=== PATIENT | female | born 1980 | race Caucasian/White ===

== ENCOUNTER 2019-07-12 21:52 | Emergency (ER) | payer MEDICAID ==
[~2019-07-12] VITALS: Ht 165.1 cm; Wt 158.3 kg
[~2019-07-12 21:52] MED LIST: CIPR-173; NOR10T
[2019-07-12 22:26] LABS: Basophils # (auto) 0.1 uL; Basophils % (auto) 0.5 % (0.0-2.0); Eosinophils # (auto) 0.1 uL; Eosinophils % (auto) 0.7 % (0.0-7.0); Hematocrit 45.2 % (36.0-46.0); Hemoglobin 15.2 g/dL (12.2-16.2); Lymphocytes % (auto) 23.4 % (10.0-50.0); Mean Corpuscular Hemoglobin 29.1 pg (28.0-32.0); Mean Corpuscular Hgb Conc. 33.7 g/dL (32.0-36.0); Mean Corpuscular Volume 86.4 fL (80.0-100.0); Monocytes # (auto) 1.4 uL; Monocytes % (auto) 10.6 % (0.0-12.0); Neutrophils # (auto) 8.3 uL; Neutrophils % (auto) 64.8 % (37.0-80.0); Platelet Count (auto) 339 10^3/uL (140-450); Red Blood Cells 5.24 10^6/uL (4.0-5.20); Red Cell Distribution Width 14.2 % (11.8-14.3); White Blood Cell 12.8 10^3/uL (4.4-10.8)
[2019-07-12 22:27] LABS: Urine Bacteria MANY /hpf (None Seen); Urine Blood Negative /uL (Negative); Urine Specific Gravity 1.023 (1.001-1.035); Urine WBC 88 /hpf (0 - 5); Urine WBC Clumps PRESENT /hpf (None Seen)
[2019-07-12 22:41] LABS: Alanine Aminotransferase 42 U/L (13-56); Anion Gap 7 (5-15); Aspartate Aminotransferase 27 U/L (15-37); BUN/Creatinine Ratio 9.1; Blood Urea Nitrogen 11 mg/dL (7-18); Calcium 10.9 mg/dL (8.5-10.1); Carbon Dioxide 24 mmol/L (21-32); Chloride 108 mmol/L (98-107); GFR African American 65 mL/min; GFR Non-African American 54 mL/min; Glucose 104 mg/dL (74-106); Potassium 3.8 mmol/L (3.5-5.1); Sodium 139 mmol/L (136-145)
[2019-07-12 22:46] LABS: Alkaline Phosphatase 91 U/L (45-117); Bilirubin, Total 0.6 mg/dL (0.2-1.0); Total Protein 8.4 g/dL (6.4-8.2)
[2019-07-13 03:00] VITALS: BP 120/71
== END 2019-07-13 03:59 | disposition home or self-care (01) ==
LOC: ER 21:54
DX: K52.9 Noninfective gastroenteritis and colitis, unspecified (principal); N39.0 Urinary tract infection, site not specified; H10.9 Unspecified conjunctivitis; I10 Essential (primary) hypertension; J45.909 Unspecified asthma, uncomplicated; Z90.710 Acquired absence of both cervix and uterus
CPT/HCPCS: 36415; 74176; 80053; 81001; 81025; 84484; 85025

== ENCOUNTER 2019-08-10 18:01 | Emergency (ER) | payer MEDICAID ==
[~2019-08-10] VITALS: Ht 165.1 cm; Wt 154.2 kg
[2019-08-10 19:53] LABS: Basophils # (auto) 0.1 uL; Basophils % (auto) 1.1 % (0.0-2.0); Eosinophils # (auto) 0.2 uL; Eosinophils % (auto) 1.4 % (0.0-7.0); Hematocrit 46.8 % (36.0-46.0); Hemoglobin 15.7 g/dL (12.2-16.2); Lymphocytes # (auto) 2.6 uL; Lymphocytes % (auto) 23.1 % (10.0-50.0); Mean Corpuscular Hemoglobin 29.4 pg (28.0-32.0); Mean Corpuscular Hgb Conc. 33.6 g/dL (32.0-36.0); Mean Corpuscular Volume 87.5 fL (80.0-100.0); Monocytes # (auto) 1.1 uL; Monocytes % (auto) 9.7 % (0.0-12.0); Neutrophils # (auto) 7.4 uL; Neutrophils % (auto) 64.7 % (37.0-80.0); Nucleated Red Blood Cells % 0.1 %; Platelet Count (auto) 288 10^3/uL (140-450); Red Blood Cells 5.35 10^6/uL (4.0-5.20); Red Cell Distribution Width 15.1 % (11.8-14.3); White Blood Cell 11.5 10^3/uL (4.4-10.8)
[2019-08-10 20:10] LABS: Albumin 4.3 g/dL (3.4-5.0); Calcium 11.1 mg/dL (8.5-10.1); Potassium 4.9 mmol/L (3.5-5.1)
[2019-08-10 20:13] LABS: BUN/Creatinine Ratio 14.1; Bilirubin, Total 0.3 mg/dL (0.2-1.0); Total Protein 8.4 g/dL (6.4-8.2)
[2019-08-11 09:03] LABS: Urine Amorphous Crystal FEW /hpf (None Seen); Urine Bacteria NONE SEEN /hpf (None Seen); Urine Blood Negative /uL (Negative); Urine Mucus FEW (None Seen); Urine Specific Gravity 1.021 (1.001-1.035); Urine WBC 10 /hpf (0 - 5)
[2019-08-11 10:00] VITALS: BP 115/59
== END 2019-08-11 11:55 | disposition home or self-care (01) ==
LOC: ER 18:08
DX: N39.0 Urinary tract infection, site not specified (principal); K52.9 Noninfective gastroenteritis and colitis, unspecified; E83.52 Hypercalcemia; K76.0 Fatty (change of) liver, not elsewhere classified; E66.01 Morbid (severe) obesity due to excess calories; I12.9 Hypertensive chronic kidney disease with stage 1 through stage 4 chronic kidney disease, or unspecified chronic kidney disease; N18.3 Chronic kidney disease, stage 3 (moderate); J45.909 Unspecified asthma, uncomplicated; Z68.45 Body mass index [BMI] 70 or greater, adult; Z90.710 Acquired absence of both cervix and uterus; Z79.2 Long term (current) use of antibiotics; Z79.899 Other long term (current) drug therapy
CPT/HCPCS: 36415; 74176; 80053; 81001; 81025; 82150; 83690; 85025

== ENCOUNTER 2019-08-18 01:15 | Emergency (ER) | payer MEDICAID ==
[~2019-08-18] VITALS: Ht 165.1 cm; Wt 148.8 kg
[2019-08-18 02:41] LABS: Basophils # (auto) 0.1 uL; Basophils % (auto) 0.7 % (0.0-2.0); Eosinophils # (auto) 0.1 uL; Eosinophils % (auto) 1.4 % (0.0-7.0); Hematocrit 45.1 % (36.0-46.0); Hemoglobin 15.6 g/dL (12.2-16.2); Lymphocytes # (auto) 2.3 uL; Lymphocytes % (auto) 25.5 % (10.0-50.0); Mean Corpuscular Hemoglobin 29.5 pg (28.0-32.0); Mean Corpuscular Hgb Conc. 34.6 g/dL (32.0-36.0); Mean Corpuscular Volume 85.1 fL (80.0-100.0); Monocytes # (auto) 1.1 uL; Monocytes % (auto) 12.1 % (0.0-12.0); Neutrophils # (auto) 5.5 uL; Neutrophils % (auto) 60.3 % (37.0-80.0); Platelet Count (auto) 282 10^3/uL (140-450); Red Blood Cells 5.29 10^6/uL (4.0-5.20); Red Cell Distribution Width 14.6 % (11.8-14.3); White Blood Cell 9.1 10^3/uL (4.4-10.8)
[2019-08-18 03:20] LABS: Albumin 3.9 g/dL (3.4-5.0); Calcium 10.6 mg/dL (8.5-10.1); Potassium 4.4 mmol/L (3.5-5.1)
[2019-08-18 03:21] LABS: BUN/Creatinine Ratio 9.7
[2019-08-18 03:23] LABS: Bilirubin, Total 0.3 mg/dL (0.2-1.0); Total Protein 7.9 g/dL (6.4-8.2)
[2019-08-18 07:42] VITALS: BP 102/54
[2019-08-18] MEDS ORDERED: PANTOPRAZOLE 40 MG TAB PO ONE (07:45)
== END 2019-08-18 07:45 | disposition home or self-care (01) ==
LOC: ER 01:17
DX: K29.70 Gastritis, unspecified, without bleeding (principal); J45.909 Unspecified asthma, uncomplicated; Z90.710 Acquired absence of both cervix and uterus
CPT/HCPCS: 36415; 80053; 85025

== ENCOUNTER 2022-04-06 11:11 | Emergency (ER) | payer MEDICARE, MEDICAID ==
[~2022-04-06] VITALS: Ht 165.1 cm; Wt 115.9 kg
[2022-04-06 11:49] VITALS: BP 142/79
== END 2022-04-06 12:45 | disposition left against medical advice (07) ==
LOC: ER 11:11
DX: Z00.00 Encounter for general adult medical examination without abnormal findings (principal); Z53.21 Procedure and treatment not carried out due to patient leaving prior to being seen by health care provider

== ENCOUNTER 2022-11-02 10:29 | Emergency (ER) | payer MEDICARE, MEDICAID ==
[~2022-11-02] VITALS: Ht 165.1 cm; Wt 137.6 kg
[2022-11-02 11:20] LABS: Basophils # (auto) 0.1 10 ^3/uL (0-0.2); Basophils % (auto) 0.5 % (0.0-2.0); Eosinophils # (auto) 0.1 10 ^3/uL (0-0.8); Eosinophils % (auto) 1.1 % (0.0-7.0); Hematocrit 43.5 % (36.0-46.0); Hemoglobin 14.3 g/dL (12.2-16.2); Lymphocytes # (auto) 1.5 10 ^3/uL (0.4-5.4); Lymphocytes % (auto) 14.9 % (10.0-50.0); Mean Corpuscular Hemoglobin 29.2 pg (28.0-32.0); Mean Corpuscular Hgb Conc. 32.8 g/dL (32.0-36.0); Mean Corpuscular Volume 89.2 fL (80.0-100.0); Monocytes # (auto) 0.8 10 ^3/uL (0-1.3); Monocytes % (auto) 7.9 % (0.0-12.0); Neutrophils # (auto) 7.8 10 ^3/uL (1.6-8.6); Neutrophils % (auto) 75.6 % (37.0-80.0); Red Blood Cells 4.88 10^6/uL (4.0-5.20); Red Cell Distribution Width 14.8 % (11.8-14.3); White Blood Cell 10.3 10^3/uL (4.4-10.8)
[2022-11-02 11:58] LABS: Urine Bacteria FEW /hpf (None Seen); Urine Blood TRACE /uL (Negative); Urine Specific Gravity 1.017 (1.001-1.035); Urine WBC 4 /hpf (0 - 5)
[2022-11-02 12:25] LABS: Albumin 3.6 g/dL (3.4-5.0); Bilirubin, Total 0.3 mg/dL (0.2-1.0); Calcium 10.6 mg/dL (8.5-10.1); Total Protein 7.4 g/dL (6.4-8.2)
[2022-11-02] MEDS ORDERED: NITR-87 PO (13:12)
[2022-11-02 13:55] VITALS: BP 124/89
== END 2022-11-02 14:58 | disposition home or self-care (01) ==
LOC: ER 10:29
DX: N39.0 Urinary tract infection, site not specified (principal); I10 Essential (primary) hypertension; J45.909 Unspecified asthma, uncomplicated; Z90.710 Acquired absence of both cervix and uterus; Z79.899 Other long term (current) drug therapy
CPT/HCPCS: 36415; 80053; 81001; 84484; 85025

== ENCOUNTER → 2023-04-05 | Day surgery (SDC) | payer MEDICARE, MEDICAID ==
[~2023-04-05] VITALS: Ht 165.1 cm; Wt 143.8 kg
[~2023-04-05] MED LIST changes: -CIPR-173; +CIPROFLOXACIN 400MG/200ML 200 ML IV ONE; +HYDROmorphone HCL 2 MG/ML VL/or syr IV PRN; +LIDOCAINE 2% (LOCAL ANESTH.) PF 5ml SDV ONE; +MIDAZOLAM HCL 2MG/2ML 2ml VIAL (1mg/ml) ONE; -NOR10T; +ONDANSETRON HCL 4 MG/2 ML VIAL IV PRN; +ONDANSETRON HCL 4 MG/2 ML VIAL ONE; +PROPOFOL 10 MG/ML 20 ML IV ONE; +SUCCINYLCHOLINE CHLORIDE 20 MG/ML 10ML VIAL IV ONE; +fentaNYL CITRATE 100 MCG/2 ML VL ONE
[2023-04-05 08:46] VITALS: TEMP 98.7
[2023-04-05 09:30] VITALS: BP 111/52; PULSE 56; RESP 24; O2SAT 98
== END | disposition home or self-care (01) ==
LOC: SUR 06:06
PROVIDERS: ATTEND Urology
DX: N20.0 Calculus of kidney (principal); E66.9 Obesity, unspecified; Z68.43 Body mass index [BMI] 50.0-59.9, adult; Z90.710 Acquired absence of both cervix and uterus; Z98.890 Other specified postprocedural states
CPT/HCPCS: 50590; J0330; J0744; J2001; J2250; J2405; J2704; J3010

== ENCOUNTER 2024-04-12 08:47 | Day surgery (SDC) | payer MEDICARE, MEDICAID ==
[2024-04-05 10:44] LABS: Basophils # (auto) 0.1 10 ^3/uL (0-0.2); Basophils % (auto) 0.7 % (0.0-2.0); Eosinophils # (auto) 0.1 10 ^3/uL (0-0.8); Eosinophils % (auto) 1.4 % (0.0-7.0); Hematocrit 41.3 % (36.0-46.0); Hemoglobin 13.9 g/dL (12.2-16.2); Lymphocytes # (auto) 1.8 10 ^3/uL (0.4-5.4); Lymphocytes % (auto) 18.3 % (10.0-50.0); Mean Corpuscular Hemoglobin 30.4 pg (28.0-32.0); Mean Corpuscular Hgb Conc. 33.6 g/dL (32.0-36.0); Mean Corpuscular Volume 90.4 fL (80.0-100.0); Monocytes % (auto) 9.6 % (0.0-12.0); Red Blood Cells 4.57 10^6/uL (4.0-5.20); Red Cell Distribution Width 14.8 % (11.8-14.3)
[2024-04-05 10:47] LABS: Urine Bacteria FEW /hpf (None Seen); Urine Blood Negative /uL (Negative); Urine Clarity Clear (Clear); Urine Color Light-Yellow (Yellow); Urine Mucus FEW (None Seen); Urine Protein, UAD Negative (Negative); Urine Specific Gravity 1.015 (1.001-1.035); Urine Urobilinogen Normal (Negative); Urine WBC 8 /hpf (0 - 5); Urine pH 5.5 (5.0-9.0)
[2024-04-05 11:04] LABS: INR 1.02 (0.9-1.15); Partial Thromboplastin Time 26.7 SEC (24.5-34.5); Prothrombin Time 10.8 sec (9.3-11.8)
[2024-04-05 11:15] LABS: Alanine Aminotransferase 26 U/L (7-40); Albumin 4.6 g/dL (3.2-4.8); Alkaline Phosphatase 90 U/L (46-116); Anion Gap 5 (5-15); Aspartate Aminotransferase 13 U/L (13-40); BUN/Creatinine Ratio 7.4 (10.0-20.0); Bilirubin, Total 0.3 mg/dL (0.2-1.0); Blood Urea Nitrogen 13 mg/dL (9-23); Calcium 12.1 mg/dL (8.7-10.4); Carbon Dioxide 28 mmol/L (20-30); Chloride 107 mmol/L (98-107); Glucose 85 mg/dL (74-106); Potassium 4.6 mmol/L (3.5-5.1); Sodium 140 mmol/L (136-145); Total Protein 7.4 g/dL (5.7-8.2)
[~2024-04-12] VITALS: Ht 165.1 cm; Wt 149.7 kg
[~2024-04-12 08:47] MED LIST changes: +ACET-1882 PO; +ALBUAER3 IN; +ARIP2TAB PO; +BUPR150T18 PO; +BUSP5TAB51 PO; +CETI-195 PO; -CIPROFLOXACIN 400MG/200ML 200 ML IV ONE; +DOCU-94 PO; +FAMO20TA10 PO; +FENO54TA4 PO; +FURO20TA3 PO; -HYDROmorphone HCL 2 MG/ML VL/or syr IV PRN; -LIDOCAINE 2% (LOCAL ANESTH.) PF 5ml SDV ONE; +LISI2.5T47 PO; +LOVA20TA4 PO; -MIDAZOLAM HCL 2MG/2ML 2ml VIAL (1mg/ml) ONE; -ONDANSETRON HCL 4 MG/2 ML VIAL IV PRN; -ONDANSETRON HCL 4 MG/2 ML VIAL ONE; -PROPOFOL 10 MG/ML 20 ML IV ONE; -SUCCINYLCHOLINE CHLORIDE 20 MG/ML 10ML VIAL IV ONE; +TRAZ-228 PO; -fentaNYL CITRATE 100 MCG/2 ML VL ONE
[2024-04-12] MEDS ORDERED: PROPOFOL 10 MG/ML 20 ML IV ONE ×2 (09:48→10:07)
[2024-04-12 10:12] VITALS: PULSE 77; RESP 10; TEMP 97.8; O2SAT 97
[2024-04-12 10:45] VITALS: BP 118/68; PULSE 77; RESP 16; O2SAT 96
== END 2024-04-12 11:05 | disposition home or self-care (01) ==
LOC: GI 08:47
PROVIDERS: ATTEND Internal Medicine Gastroenterology
DX: R19.7 Diarrhea, unspecified (principal); R19.5 Other fecal abnormalities; R10.11 Right upper quadrant pain; K29.50 Unspecified chronic gastritis without bleeding; B96.81 Helicobacter pylori [H. pylori] as the cause of diseases classified elsewhere; K21.9 Gastro-esophageal reflux disease without esophagitis; I12.9 Hypertensive chronic kidney disease with stage 1 through stage 4 chronic kidney disease, or unspecified chronic kidney disease; N18.9 Chronic kidney disease, unspecified; J45.909 Unspecified asthma, uncomplicated; E78.5 Hyperlipidemia, unspecified; F32.A Depression, unspecified; E66.01 Morbid (severe) obesity due to excess calories; Z68.43 Body mass index [BMI] 50.0-59.9, adult; Z90.710 Acquired absence of both cervix and uterus; Z88.8 Allergy status to other drugs, medicaments and biological substances; Z80.0 Family history of malignant neoplasm of digestive organs
CPT/HCPCS: 36415; 43239; 45380; 80053; 81001; 85025; 85610; 85730; 88305; 88312; 88342; J2704; J7030

== ENCOUNTER 2024-06-24 18:22 | Emergency (ER) | payer MEDICARE, MEDICAID ==
[~2024-06-24] VITALS: Ht 165.1 cm; Wt 152.0 kg
[~2024-06-24 18:22] MED LIST changes: +PANT40TA2 PO; +ZOFR4T PO
[2024-06-24 20:16] VITALS: BP 110/64; PULSE 75; RESP 17; TEMP 97.7; O2SAT 96
== END 2024-06-24 21:20 | disposition home or self-care (01) ==
LOC: ER 18:22
DX: S93.401A Sprain of unspecified ligament of right ankle, initial encounter (principal); J45.909 Unspecified asthma, uncomplicated; I10 Essential (primary) hypertension; G89.29 Other chronic pain; Z79.899 Other long term (current) drug therapy; Z87.11 Personal history of peptic ulcer disease; Z87.440 Personal history of urinary (tract) infections; Z88.1 Allergy status to other antibiotic agents; Z88.6 Allergy status to analgesic agent; Z90.710 Acquired absence of both cervix and uterus; X50.1XXA Overexertion from prolonged static or awkward postures, initial encounter; Y93.01 Activity, walking, marching and hiking; Y92.89 Other specified places as the place of occurrence of the external cause; Y99.8 Other external cause status
CPT/HCPCS: 29515; 73610

== ENCOUNTER 2024-12-02 20:20 | Inpatient (IN) | payer MEDICARE, MEDICAID ==
[~2024-12-02] VITALS: Ht 165.1 cm; Wt 148.7 kg
--- NOTE | 2024-12-02 20:39 | ED.PDOC ---
HPI Comments 44 year old female brought in by EMS presents to the ED with a chief complaint of chest pain onset today (12/02/24). Patient woke up today experiencing substernal chest pain, radiating to LT arm, rates pain 7/10 as well as sore throat. She noticed pain increases when taking a deep breath. Patient has been taking Lasix for the past month, since then noticed bilateral leg swelling, decrease urine output. Upon EMS arrival, all VSS. PMHx HTN, depression, Gerd. Denies nausea, vomiting, diarrhea, fever, chills, headache, dizziness. No other symptoms or modifying factors present at this time. Time Seen by MD: 20:27 Primary Care Provider: RAI Reviewed Notes: Nurses Notes, Medications, Allergies Allergies: Coded Allergies: Vancomycin (Unverified Allergy, Intermediate, Rash, pruritus, 04/06/24) Aspirin (Verified Allergy, Unknown, 06/11/24) Ibuprofen (Verified Allergy, Unknown, 06/11/24) Home Meds Active Scripts Ondansetron Odt 4MG Tab (ZOFRAN PO) 4 Mg Tb, 4 MG PO Q8HP PRN for 5 Days, #15 TAB ODT TAB-DISSOLVE IN MOUTH, THEN SWALLOW Prov:EDUAR ORELLANA MD 11/25/23 Pantoprazole Sodium Sesquihydr (Protonix) 40 Mg Tab, 40 MG PO DAILY, #30 TAB Prov:EDUAR ORELLANA MD 11/25/23 Reported Medications Albuterol Sulfate (VENTOLIN MDI) 90 Mcg Ih, 2 PUFF IN Q4HPRN, INH 04/06/24 Trazodone Hcl (Trazodone Hcl) 100 Mg Tab, 100 MG PO HS, TAB 04/06/24 Lovastatin (Lovastatin) 20 Mg Tab, 20 MG PO HS, TAB 04/06/24 Lisinopril (Lisinopril) 2.5 Mg Tab, 5 MG PO DAILY, TAB 04/06/24 Furosemide (Furosemide) 20 Mg Tab, 20 MG PO DAILY, TAB 04/06/24 Fenofibrate (Fenofibrate) 54 Mg Tab, 54 MG PO DAILY, TAB 04/06/24 Famotidine (PEPCID TABLET) 20 Mg Tb, 20 MG PO DAILY, TAB 04/06/24 Docusate Sodium (Colace) 100 Mg Cap, 100 MG PO DAILY, CAP 04/06/24 Cetirizine HCl (Allergy) 10 Mg Tab, 10 MG PO DAILY, TAB 04/06/24 Buspirone Hcl (Buspirone Hcl) 5 Mg Tab, 10 MG PO BID, TAB 04/06/24 Bupropion Hcl (Bupropion Hcl Xl) 150 Mg Tab, 300 MG PO DAILY, TAB 04/06/24 Aripiprazole (Abilify) 2 Mg Tab, 5 MG PO DAILY, TAB 04/06/24 Acetaminophen (Acetaminophen) 325 Mg Tab, 2 TAB PO Q6HP, TAB 04/06/24 Information Source: Patient, Emergency Med Personnel Mode of Arrival: EMS Severity: Moderate Timing: Hours Duration: Since onset Prehospital treatment: None Location: Substernal Radiation: Arm (L) Quality: Sharp Onset: At Rest Cardiac Risk Factors: Family History, HTN PE Risk Factors: None History of: None Modifying Factors: Nothing Associated Signs and Symptoms: Other (LT arm pain) Past Medical History PAST MEDICAL HISTORY: Asthma, HTN, PUD, UTI'S Surgical History: Hysterectomy Surgical History (Other): back surgery SYSTEM ADMINISTRATOR History: No Pertinent SYSTEM ADMINISTRATOR History Family History Family History: Family hx of heart chava Social History Smoker: Non-Smoker Alcohol: Denies ETOH Use Drugs: Denies Drug Use Lives In: Other Constitutional: denies: chills, diaphoresis, fatigue, fever, malaise, sweats, weakness, others EENTM: denies: blurred vision, double vision, ear bleeding, ear discharge, ear drainage, ear pain, ear ringing, eye pain, eye redness, hearing loss, mouth pain, mouth swelling, nasal discharge, nose bleeding, nose congestion, nose pain, photophobia, tearing, throat pain, throat swelling, voice changes, others Respiratory: denies: cough, hemoptysis, orthopnea, SOB at rest, shortness of breath, SOB with excertion, stridor, wheezing, others Cardiovascular: reports: chest pain; denies: dizzy spells, diaphoresis, Dyspnea on exertion, edema, irregular heart beat, left arm pain, lightheadedness, palpitations, PND, syncope, others Gastrointestinal: denies: abdomen distended, abdominal pain, blood streaked bowels, constipated, diarrhea, dysphagia, difficulty swallowing, hematemesis, melena, nausea, poor appetite, poor fluid intake, rectal bleeding, rectal pain, vomiting, others Genitourinary: denies: abnormal vagina bleeding, burning, dyspareunia, dysuria, flank pain, frequency, hematuria, incontinence, pain, , vagina discharge, urgency, others Neurological: denies: dizziness, fainting, headache, left sided numbness, left sided weakness, numbness, paresthesia, pre-existing deficit, right sided numbness, right sided weakness, seizure, speech problems, tingling, tremors, weakness, others Musculoskeletal: reports: others (LT arm pain); denies: back pain, gout, joint pain, joint swelling, muscle pain, muscle stiffness, neck pain Integumetry: denies: bruises, change in color, change in hair/nails, dryness, laceration, lesions, lumps, rash, wounds, others Allergic/Immunocompromised: denies: Difficulty Healing, Frequent Infections, Hives, Itching, others Hematologic/Lymphatic: denies: anemia, blood clots, easy bleeding, easy bruising, swollen glands, others Endocrine: denies: excessive hunger, excessive sweating, excessive thirst, excessive urination, flushing, intolerance to cold, intolerance to heat, unexplained weight gain, unexplained weight loss, others Psychiatric: denies: anxiety, bipolar disorder, depression, hopeless, panic disorder, schizophrenia, sleepless, suicidal, others All Other Systems: Reviewed and Negative Physical Exam General Appearance: Moderate Distress HEENT: Normal ENT Inspection, Pharynx Normal, TMs Normal Neck: Full Range of Motion, Non-Tender, Normal, Normal Inspection Respiratory: Chest Non-Tender, Lungs Clear, No Accessory Muscle Use, No Respiratory Distress, Normal Breath Sounds Cardiovascular: No Edema, No JVD, No Murmur, No Gallop, Normal Peripheral Pulses, Regular Rate/Rhythm Breast Exam: Deferred Gastrointestinal: No Organomegaly, Non Tender, No Pulsatile Mass, Normal Bowel Sounds, Soft Genitalia: Deferred Pelvic: Deferred Rectal: Deferred Extremities: No calf tenderness, Normal capillary refill, Normal inspection, Normal range of motion, Non-tender, No pedal edema Musculoskeletal : Apperance: Normal Neurologic: Alert, coding auditor II-XII nml as Tested, No Motor Deficits, Normal Affect, Normal Mood, No Sensory Deficits Cerebellar Function: Normal Reflexes: Normal Skin: Dry, Normal Color, Warm Lymphatic: No Adenopathy EKG EKG : Cardiac Rhythm: NSR (77 bpm) Comments 77 bpm Was a procedure done? Was a procedure done?: No CP Differential Dx Differential Diagnosis: Angina, MA Differential Diagnosis: CHF, HTN Essential, HTN Accelerated X-Ray, Labs, Meds, VS Vital Signs Date Time Temp Pulse Resp B/P (MAP) Pulse Ox O2 Delivery O2 Flow Rate FiO2 12/02/24 21:26 68 19 97 Room Air* 0 21 12/02/24 21:18 98.7 75 17 117/74 (88) 94 98.7 12/02/24 20:25 98.2 74 16 118/70 (86) 95 98.2 12/02/24 20:22 77 Lab Test 12/02/24 20:40 Range/Units White Blood Count 12.7 H 4.4-10.8 10^3/uL Red Blood Count 5.18 4.0-5.20 10^6/uL Hemoglobin 14.5 12.2-16.2 g/dL Hematocrit 44.4 36.0-46.0 % Mean Corpuscular Volume 85.7 80.0-100.0 fL Mean Corpuscular Hemoglobin 28.1 28.0-32.0 pg Mean Corpuscular Hemoglobin Concent 32.8 32.0-36.0 g/dL Red Cell Distribution Width 14.8 H 11.8-14.3 % Platelet Count 291 140-450 10^3/uL Mean Platelet Volume 7.0 6.9-10.8 fL Neutrophils (%) (Auto) 72.9 37.0-80.0 % Lymphocytes (%) (Auto) 17.1 10.0-50.0 % Monocytes (%) (Auto) 8.0 0.0-12.0 % Eosinophils (%) (Auto) 1.3 0.0-7.0 % Basophils (%) (Auto) 0.7 0.0-2.0 % Neutrophils # (Auto) 9.2 H 1.6-8.6 10 ^3/uL Lymphocytes # (Auto) 2.2 0.4-5.4 10 ^3/uL Monocytes # (Auto) 1.0 0-1.3 10 ^3/uL Eosinophils # (Auto) 0.2 0-0.8 10 ^3/uL Basophils # (Auto) 0.1 0-0.2 10 ^3/uL Nucleated Red Blood Cells 0.1 % D-Dimer, Quantitative 0.49 0.0-0.49 mg/L FEU Sodium Level 139 136-145 mmol/L Potassium Level 3.9 3.5-5.1 mmol/L Chloride Level 107 98-107 mmol/L Carbon Dioxide Level 28 20-31 mmol/L Anion Gap 4 L 5-15 Blood Urea Nitrogen 11 9-23 mg/dL Creatinine 1.47 H 0.550-1.02 mg/dL Glomerular Filtration Rate Calc 45 >90 mL/min BUN/Creatinine Ratio 7.5 L 10.0-20.0 Serum Glucose 92 74-106 mg/dL Calcium Level 12.0 H 8.7-10.4 mg/dL Troponin I High Sensitivity < 3 L </=34 ng/L Current Medications Medications (Trade) Dose Ordered Sig/Vargas Route Start Time Stop Time Status Last Admin Aspirin 162 mg ONCE ONCE PO 12/02/24 20:45 12/02/24 20:46 DC 12/02/24 21:28 IV Hep-Lock was established The patient was given aspirin 162 mg by mouth The CBC shows an elevated white blood cell count of 12.7 The rest of the CBC is within normal limits The D-dimer is within limits At this time, the patient has a creatinine of 1.47 The patient was being admitted to the hospitalist at this time Images Reviewed?: Images reviewed and evaluated by me Time of 1ST Reevaluation: 20:57 Reevaluation 1ST: Unchanged Patient Education/Counseling: Diagnosis, Treatment, Prognosis Family Education/Counseling: No Family Present Departure 1 Departure Time of Disposition: 21:47 Impression: Primary Impression: Acute myocardial ischemia Disposition: 09 ADMITTED INPATIENT Admit to: [facility] Condition: Fair Critical Care Note Critical Care Time?: No Stability Stability form required: Yes Unstable for transfer: Telemetry monitoring (Telemetry monitoring required), ED Physician Assesment (Clinical assesment) Heart Score Heart Score: Heart Score Response (Comments) Value History Moderate Suspicious 1 EKG Repolarization Disturb 1 Age <45 0 Risk Factors 1 or 2 risk factors 1 Troponin Normal limit 0 Total 3 I personally scribed for EDUAR ORELLANA MD ([email or web address]) on 12/02/24 at 20:39. Electronically submitted by Carole Reyes ([email or web address]). EDUAR ORELLANA MD Dec 02, 2024 20:39
[2024-12-02 20:49] LABS: Basophils # (auto) 0.1 10 ^3/uL (0-0.2); Basophils % (auto) 0.7 % (0.0-2.0); Eosinophils # (auto) 0.2 10 ^3/uL (0-0.8); Eosinophils % (auto) 1.3 % (0.0-7.0); Hematocrit 44.4 % (36.0-46.0); Hemoglobin 14.5 g/dL (12.2-16.2); Lymphocytes # (auto) 2.2 10 ^3/uL (0.4-5.4); Lymphocytes % (auto) 17.1 % (10.0-50.0); Mean Corpuscular Hemoglobin 28.1 pg (28.0-32.0); Mean Corpuscular Hgb Conc. 32.8 g/dL (32.0-36.0); Mean Corpuscular Volume 85.7 fL (80.0-100.0); Neutrophils # (auto) 9.2 10 ^3/uL (1.6-8.6); Neutrophils % (auto) 72.9 % (37.0-80.0); Nucleated Red Blood Cells % 0.1 %; Platelet Count (auto) 291 10^3/uL (140-450); Red Blood Cells 5.18 10^6/uL (4.0-5.20); Red Cell Distribution Width 14.8 % (11.8-14.3); White Blood Cell 12.7 10^3/uL (4.4-10.8)
[2024-12-02 21:12] LABS: Anion Gap 4 (5-15); BUN/Creatinine Ratio 7.5 (10.0-20.0); Blood Urea Nitrogen 11 mg/dL (9-23); Carbon Dioxide 28 mmol/L (20-31); Chloride 107 mmol/L (98-107); Glucose 92 mg/dL (74-106); Potassium 3.9 mmol/L (3.5-5.1); Sodium 139 mmol/L (136-145)
[2024-12-02 21:26] VITALS: PULSE 68; RESP 19; O2SAT 97
[2024-12-02] MEDS: ASPirin 81 mg TAB PO ONE (21:28)
--- NOTE | 2024-12-02 22:43 | DVH ---
CHEST RADIOGRAPH Indication: cp Technique: Frontal and lateral view of the chest was obtained Comparison: None FINDINGS: Lines and Tubes: None Lungs: Clear Pleura: No effusion. No pneumothorax. Cardiomediastinal contours: Unremarkable Bones: Unremarkable IMPRESSION: 1. No evidence of acute disease.
[2024-12-02] MEDS ORDERED: MORPHINE SULFATE INJ 2 MG/ml SYRG IV PRN (22:45)
--- NOTE | 2024-12-02 23:16 | DVHHPRES ---
History of Present Illness Resident Creating Document: KAYY MCARTHUR RESDIENT History of Present Illness This is a 44 year old female with past medical history of hypertension, depression, GERD, CKD, and asthma came to the hospital due to chest pain for 1 day. She has localized substernal chest pain, burning in nature, 03/28, increased with taking deep breaths. The pain did not resolve by taking aspirin. Also reports shortness of breath. He denies fever, nausea, vomiting, or any recent bowel and bladder habit changes. PMHx: hypertension, depression, GERD, CKD, and asthma and history skin cancer (patient does not remind clearly, possibly melanoma, in remission) PSHx: Back surgery due to fused disc Family history: Noncontributing Social history: Denies smoking or any other drug use, lives with a boyfriend at home. Secondhand smoker Home medication: Albuterol, lovastatin, lisinopril, furosemide, fenofibrate, famotidine, bupropion, aripiprazole Allergic history: Aspirin, ibuprofen and vancomycin Review of Systems Review of Systems General: patient denies fever, fatigue, weaknes, sweating, any recent changes in appetite and weight HEENT: No headaches, visiual changes, hearing loss, tinnitus, nasal congestion and discharge, and sore throat. Cardiovascular: Reports chest pain Respiratory: No cough, and wheezing. Gastrointestinal: Denies nausea, vomiting, dysphagia, odynophagia, heartburn, abdominal pain, flatulence, bloating, diarrhea, constipation, change in stool, or blood in stool. Genitourinary: No dysuria, hematuria, discharge, frequency, urgency, nocturia, incontinence, and urinary retention. Endocrine: No heat or cold intolerance, polydipsia, polyuria, and polyphagia. Neurological: No dizziness, extremity weakness and numbness, tremors, gait disturbance, seizures, and memory impairment. Psychiatric: Denies depression, anxiety,or insomnia. Musculoskeletal: Denies neck pain, stiffness and swelling, back pain, muscle weakness, joint pain, stiffness, swelling, or limited range of motion. Skin: No rashes, itching, skin lesion, changes in hair, nail, skin texture and breast. Hematologic/Lymphatic: Denies easy bruising, bleeding tendencies, or lymph node enlargement. Allergies: Coded Allergies: Vancomycin (Unverified Allergy, Intermediate, Rash, pruritus, 04/06/24) Aspirin (Verified Allergy, Unknown, 06/11/24) Ibuprofen (Verified Allergy, Unknown, 06/11/24) Medications Current Medications Medications Dose Ordered Sig/Vargas Route Start Time Stop Time Status Last Admin Dose Admin Acetaminophen 650 mg Q6HP PRN PO 12/02/24 22:45 UNV Enoxaparin Sodium 40 mg DAILY SC 12/03/24 10:00 UNV Nitroglycerin 0.4 mg Q5MINP PRN SL 12/02/24 22:45 UNV Morphine Sulfate 2 mg Q30M PRN IV 12/02/24 22:45 UNV Pantoprazole Sodium 40 mg DAILY IV 12/03/24 10:00 UNV Albuterol 1 mcg Q4HPRN IN 12/03/24 02:00 UNV Furosemide 20 mg DAILY PO 12/03/24 10:00 UNV Bupropion HCl 150 mg BID@07,19 PO 12/03/24 07:00 UNV Lisinopril 2.5 mg DAILY PO 12/03/24 10:00 UNV Exam Vital Signs Vital Signs Date Time Temp Pulse Resp B/P (MAP) Pulse Ox O2 Delivery O2 Flow Rate FiO2 12/02/24 21:26 68 19 97 Room Air* 0 21 12/02/24 21:18 98.7 117/74 (88) 98.7 Exam General Appearance: Alert, Oriented X3, Cooperative, No acute distress HEENT: Atraumatic, PERRLA, EOMI, Mucous membrane moist/pink Respiratory: Clear to auscultation, Normal air movement Cardiovascular: Regular rate, Normal S1, Normal S2, No murmurs, no chest wall tenderness Abdominal: Normal bowel sounds, Soft, No tenderness, No hepatospenomegaly, No masses Extremities: Grade 2 pedal edema Skin: No rashes, No breakdown, No significant lesion Neuro: Normal gait, Normal speech, Strength at 5/5 X4 ext, Normal tone, Sensation intact, Cranial nerves 3-12 NL, Reflexes 2+ Psych/Mental Status: Mental status NL, Mood NL Labs/Xrays Labs Test 12/02/24 20:40 Range/Units White Blood Count 12.7 H 4.4-10.8 10^3/uL Red Blood Count 5.18 4.0-5.20 10^6/uL Hemoglobin 14.5 12.2-16.2 g/dL Hematocrit 44.4 36.0-46.0 % Mean Corpuscular Volume 85.7 80.0-100.0 fL Mean Corpuscular Hemoglobin 28.1 28.0-32.0 pg Mean Corpuscular Hemoglobin Concent 32.8 32.0-36.0 g/dL Red Cell Distribution Width 14.8 H 11.8-14.3 % Platelet Count 291 140-450 10^3/uL Mean Platelet Volume 7.0 6.9-10.8 fL Neutrophils (%) (Auto) 72.9 37.0-80.0 % Lymphocytes (%) (Auto) 17.1 10.0-50.0 % Monocytes (%) (Auto) 8.0 0.0-12.0 % Eosinophils (%) (Auto) 1.3 0.0-7.0 % Basophils (%) (Auto) 0.7 0.0-2.0 % Neutrophils # (Auto) 9.2 H 1.6-8.6 10 ^3/uL Lymphocytes # (Auto) 2.2 0.4-5.4 10 ^3/uL Monocytes # (Auto) 1.0 0-1.3 10 ^3/uL Eosinophils # (Auto) 0.2 0-0.8 10 ^3/uL Basophils # (Auto) 0.1 0-0.2 10 ^3/uL Nucleated Red Blood Cells 0.1 % D-Dimer, Quantitative 0.49 0.0-0.49 mg/L FEU Sodium Level 139 136-145 mmol/L Potassium Level 3.9 3.5-5.1 mmol/L Chloride Level 107 98-107 mmol/L Carbon Dioxide Level 28 20-31 mmol/L Anion Gap 4 L 5-15 Blood Urea Nitrogen 11 9-23 mg/dL Creatinine 1.47 H 0.550-1.02 mg/dL Glomerular Filtration Rate Calc 45 >90 mL/min BUN/Creatinine Ratio 7.5 L 10.0-20.0 Serum Glucose 92 74-106 mg/dL Calcium Level 12.0 H 8.7-10.4 mg/dL Troponin I High Sensitivity < 3 L </=34 ng/L Assessment/Plan Assessment/Plan Chest pain, noncardiac ? ACS EKG shows normal sinus rhythm with no significant ST or T-wave changes Echocardiogram Clopidogrel Morphine p.r.n. Next history of asthma Hypertension Depression GERD CKD Continue home meds DIET: Cardiac diet DVT PROPHYLAXIS: Lovenox GI PROPHYLAXIS:: Protonix CODE STATUS: Goal of care discussed more than 21 minutes, full code DISPOSITION: Telemetry Patient's status and paln discussed with the patient. Case discussed with Dr. Aly. Plan discussed with: Patient, Other (RN) My Orders Orders - KAYY MCARTHUR RESDIDEMOND Procedure Category Date Status Time Admit ADMIT 12/02/24 Transmitted 22:44 Code Status CODE 12/02/24 Transmitted 22:44 Vital Signs JOCELYNE 12/02/24 In Process 22:44 Review Orders With JOCELYNE 12/02/24 In Process Adm.Md 22:44 Consistent DIET 12/03/24 Transmitted Carb(Ccho)Diabetes Breakfast Acetaminophen Tablet PHA 12/02/24 Logged (Tylenol Tablet) 22:45 Notify Of Changes [facility] 12/02/24 In Process From Base 22:44 Advance Directive JOCELYNE 12/02/24 In Process 22:44 Echo 2d Mode Cardiac US 12/02/24 Logged DOP 22:44 Urinalysis LAB 12/02/24 Logged 22:44 Lipid Panel LAB 12/02/24 Logged 22:44 Patient Condition ORDERS 12/02/24 Transmitted 22:44 Allergies JOCELYNE 12/02/24 In Process 22:44 Hemoglobin A1c LAB 12/02/24 Logged 22:44 Enoxaparin Sodium PHA 12/03/24 Logged (Lovenox) 10:00 Nitroglycerin PHA 12/02/24 Logged Sublingual (Ntrostat 22:45 Morphine Sulfate PHA 12/02/24 Logged Injection 22:45 Oxygen By Nasal RT 12/02/24 Transmitted Cannula 22:44 Stat Ekg For Chest JOCELYNE 12/02/24 In Process Pain 22:44 Notify Of Changes [facility] 12/02/24 In Process From Base 22:44 Aircraft Maintenance Supervisor For JOCELYNE 12/02/24 In Process 24 Hours 22:44 Emergency Dysrhythmia JOCELYNE 12/02/24 In Process Protocol 22:44 Rhythm Strips Once JOCELYNE 12/02/24 In Process Every Shift 22:44 Comprehensive LAB 12/03/24 Verified Metabolic Panel 04:00 Complete Blood Count LAB 12/03/24 Verified 04:00 Thyroid Stimulating LAB 12/02/24 Logged Hormone 22:44 Drug Screen LAB 12/02/24 Logged 22:44 Parathyroid Hormone LAB 12/02/24 Logged Intact 22:44 Hepatic Panel LAB 12/02/24 Logged 22:44 Vitamin D, 25-Hydroxy LAB 12/02/24 Logged 22:44 Vitamin B12 LAB 12/02/24 Logged 22:44 Magnesium LAB 12/02/24 Logged 22:44 Phosphorus LAB 12/02/24 Logged 22:44 Pantoprazole PHA 12/03/24 Logged (Protonix) 10:00 Pantoprazole PHA 12/02/24 Logged (Protonix) 22:45 Albuterol Inhaler PHA 12/03/24 Logged (Ventolin Hfa) 02:00 Furosemide Tablet PHA 12/03/24 Logged (Lasix Tablet) 10:00 Bupropion Tablet PHA 12/03/24 Logged (Wellbutrin Tablet) 07:00 Lisinopril Tablet PHA 12/03/24 Logged (Zestril Tablet) 10:00 Lisinopril Tablet PHA 12/02/24 Logged (Zestril Tablet) 23:15 Date of Service: Dec 02, 2024 Billing Provider: JAZZ ALY MD Common Visit Codes: [id number] INP/OBS CARE (HIGH) KAYY MCARTHUR RESCLAUDIA Dec 02, 2024 23:16 JAZZ ALY MD Dec 03, 2024 18:03
[2024-12-02] MEDS: PANTOPRAZOLE 40 MG/10 ML VIAL INJ IV ONE (23:40)
[2024-12-02] MEDS: LISINOPRIL 5 MG TAB PO ONE (23:42)
[2024-12-03] VITALS (9 sets, daily range): BP systolic 114–130; BP diastolic 72–82; PULSE 55–83; RESP 17–18; TEMP 97.3–97.9; O2SAT 92–96
[2024-12-03] MEDS ORDERED: FURO20TA4 PO (00:29)
[2024-12-03] MEDS ORDERED: TERB250T92 PO (00:29)
[2024-12-03] MEDS ORDERED: ARIP5TAB22 PO (00:30)
[2024-12-03] MEDS ORDERED: TRAZ1TAB12 PO (00:30)
[2024-12-03] MEDS ORDERED: FAMO40TA7 PO (00:30)
[2024-12-03] MEDS ORDERED: MUPI2OIN2 TOP (00:30)
[2024-12-03] MEDS ORDERED: BUPR-581 PO (00:30)
[2024-12-03] MEDS ORDERED: PANT40T PO (00:30)
[2024-12-03] MEDS ORDERED: CETI-120 PO (00:30)
[2024-12-03] MEDS ORDERED: ALBU108A5 INH (00:30)
[2024-12-03] MEDS ORDERED: NIFE1TAB30 PO (00:30)
[2024-12-03] MEDS ORDERED: BUSP10TA31 PO (00:30)
[2024-12-03] MEDS ORDERED: LISI-275 PO (00:30)
[2024-12-03 00:37] LABS: Alanine Aminotransferase 13 U/L (7-40); Albumin 4.2 g/dL (3.2-4.8); Alkaline Phosphatase 104 U/L (46-116); Magnesium 2.1 mg/dL (1.6-2.6); Total Protein 6.8 g/dL (5.7-8.2)
[2024-12-03 00:40] LABS: Aspartate Aminotransferase < 8 U/L (13-40); Bilirubin, Total 0.2 mg/dL (0.2-1.0); Phosphorus 2.1 mg/dL (2.4-5.1)
[2024-12-03] MEDS: ACETAMINOPHEN 325 MG TAB PO PRN (01:06)
[2024-12-03 01:40] LABS: LDL Cholesterol 64 mg/dL (< 100)
[2024-12-03 01:41] LABS: Cholesterol 121 mg/dL (< 200)
[2024-12-03] MEDS ORDERED: ALBUTEROL SULF HFA 90MCG INH 200DOSE IN SCH (02:00)
[2024-12-03 02:03] LABS: HDL Cholesterol 34 mg/dL (40-59); Triglycerides 229 mg/dL (< 150)
[2024-12-03 02:04] LABS: Bilirubin, Direct < 0.1 mg/dL (<0.3)
[2024-12-03] MEDS: NITROGLYCERIN 0.4 MG SL TAB SL PRN (04:36)
[2024-12-03] MEDS: buPROPion HCL 75 MG TAB PO SCH (06:10)
[2024-12-03] MEDS: MORPHINE SULFATE INJ 2 MG/ml SYRG IV ONE (06:11)
[2024-12-03 06:46] LABS: Alanine Aminotransferase 13 U/L (7-40); Albumin 4.2 g/dL (3.2-4.8); Anion Gap 7 (5-15); BUN/Creatinine Ratio 7.7 (10.0-20.0); Blood Urea Nitrogen 12 mg/dL (9-23); Carbon Dioxide 27 mmol/L (20-31); Chloride 106 mmol/L (98-107); Glucose 93 mg/dL (74-106); Potassium 3.9 mmol/L (3.5-5.1); Sodium 140 mmol/L (136-145)
[2024-12-03 06:47] LABS: Aspartate Aminotransferase 9 U/L (13-40); Bilirubin, Total 0.3 mg/dL (0.2-1.0); Calcium 11.6 mg/dL (8.7-10.4)
[2024-12-03 06:52] LABS: Alkaline Phosphatase 105 U/L (46-116)
[2024-12-03 07:03] LABS: Basophils # (auto) 0.1 10 ^3/uL (0-0.2); Basophils % (auto) 0.5 % (0.0-2.0); Eosinophils # (auto) 0.1 10 ^3/uL (0-0.8); Hematocrit 40.8 % (36.0-46.0); Hemoglobin 13.3 g/dL (12.2-16.2); Lymphocytes # (auto) 2.1 10 ^3/uL (0.4-5.4); Lymphocytes % (auto) 17.1 % (10.0-50.0); Mean Corpuscular Hemoglobin 28.2 pg (28.0-32.0); Mean Corpuscular Hgb Conc. 32.5 g/dL (32.0-36.0); Mean Corpuscular Volume 86.7 fL (80.0-100.0); Monocytes # (auto) 0.8 10 ^3/uL (0-1.3); Monocytes % (auto) 6.5 % (0.0-12.0); Neutrophils # (auto) 9.3 10 ^3/uL (1.6-8.6); Neutrophils % (auto) 74.9 % (37.0-80.0); Nucleated Red Blood Cells % 0.1 %; Platelet Count (auto) 307 10^3/uL (140-450); Red Blood Cells 4.71 10^6/uL (4.0-5.20); Red Cell Distribution Width 14.4 % (11.8-14.3); White Blood Cell 12.4 10^3/uL (4.4-10.8)
--- NOTE | 2024-12-03 07:09 | ECG ---
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
[2024-12-03] MEDS: ENOXAPARIN SOD 40 MG/0.4 ML SYRINGE SC SCH (09:57)
[2024-12-03] MEDS: PANTOPRAZOLE 40 MG/10 ML VIAL INJ IV SCH (09:57)
[2024-12-03] MEDS: CLOPIDOGREL BISULFATE 75 MG TAB PO SCH (10:00)
[2024-12-03] MEDS: LISINOPRIL 5 MG TAB PO SCH (10:00)
[2024-12-03] MEDS: FUROSEMIDE 20 MG TAB PO SCH (10:00)
[2024-12-03] MEDS: FUROSEMIDE 40 MG/4 ML VIAL IV ONE (11:57)
[2024-12-03] MEDS: BACLOFEN 10 MG TAB PO ONE (11:57)
--- NOTE | 2024-12-03 13:50 | DVHSR ---
APPROVED REPORT EXAM: Two-dimensional and M-mode echocardiogram with Doppler and color Doppler. Mitral Valve MitralMitral Stenosis E/A ratio0.02D MVAcm2 LEFT VENTRICLE The left ventricle is normal size. There is normal left ventricular wall thickness. The left ventricle is normal in structure and function. Left ventricle systolic function is normal. The Ejection Fraction is 55-60%. No regional wall motion abnormalities noted. RIGHT VENTRICLE The right ventricle is normal size. There is normal right ventricular wall thickness. The right ventricular systolic function is normal. ATRIA The left atrium size is normal. The right atrium size is normal. The interatrial septum is intact with no evidence for an atrial septal defect. MITRAL VALVE The mitral valve is normal in structure and function. There is no evidence of mitral valve prolapse. There is no mitral valve stenosis. There is no mitral valve regurgitation noted. PULMONIC VALVE The pulmonary valve is normal in structure and function. There is no pulmonic valvular regurgitation. There is no pulmonic valvular stenosis. TRICUSPID VALVE The tricuspid valve is normal in structure and function. There is no tricuspid valve regurgitation noted. There is no tricuspid valve prolapse or vegetation. There is no tricuspid valve stenosis. AORTIC VALVE The aortic valve is normal in structure and function. No aortic regurgitation is present. There is no aortic valvular stenosis. There is no aortic valvular vegetation. GREAT VESSELS The aortic root is normal in size. PERICARDIAL EFFUSION There is a no pericardial effusion. Conclusion There is normal left ventricular wall thickness. The left ventricle is normal in structure and function. Left ventricle systolic function is normal. The Ejection Fraction is 55-60%. There is no gross valvular pathology There is no pericardial effusion.
--- NOTE | 2024-12-03 14:16 | DVHPNRES ---
Progress Note Date Seen: Dec 03, 2024 Resident Creating Document: LIONEL ESCUDERO RESIDENT Medical Necessity Reason Pt with a Central, PICC or Fol: No Subjective Review of Systems ELVIN ABEL is a 44 year old female with past medical history of hypertension, depression, GERD, CKD, and asthma came to the hospital due to chest pain for 1 day. Yesterday while doing household work patient started having localized substernal chest pain, burning in nature, 7/10, increased with taking deep breaths. The pain did not resolve by taking nitroglycerin. Also reports shortness of breath. He denies fever, nausea, vomiting, or any recent bowel and bladder habit changes. PMHx: hypertension, depression, GERD, CKD, and asthma and history skin cancer (patient does not remind clearly, possibly melanoma, in remission) PSHx: Back surgery due to fused disc Family history: Noncontributing Social history: Denies smoking or any other drug use, lives with a boyfriend at home. Secondhand smoker Home medication: Albuterol, lovastatin, lisinopril, furosemide, fenofibrate, famotidine, bupropion, aripiprazole Allergic history: Aspirin, ibuprofen and vancomycin Patient seen and examined at the bedside. Patient reported improvement in her symptoms but no new complaints reported. Currently patient is in chest pain 11/26. EKG showed normal sinus rhythm but no ST changes and troponins were not elevated. Objective vital signs Vital Sign Date Time Temp Pulse Resp B/P (MAP) Pulse Ox O2 Delivery O2 Flow Rate FiO2 12/03/24 13:02 97.6 63 18 115/74 (88) 94 97.6 12/03/24 08:10 Room Air* 0 21 Total Intake and Output 12/02/24 12/02/24 12/03/24 15:00 23:00 07:00 Intake Total 0 ml Balance 0 ml medications Current Medications Medications Dose Ordered Sig/Vargas Route Start Time Stop Time Status Last Admin Dose Admin Acetaminophen 650 mg Q6HP PRN PO 12/02/24 22:45 12/03/24 13:56 650 MG Enoxaparin Sodium 40 mg DAILY SC 12/03/24 10:00 12/03/24 09:57 40 MG Nitroglycerin 0.4 mg Q5MINP PRN SL 12/02/24 22:45 12/03/24 04:43 0.4 MG Morphine Sulfate 2 mg Q30M PRN IV 12/02/24 22:45 Pantoprazole Sodium 40 mg DAILY IV 12/03/24 10:00 12/03/24 09:57 40 MG Bupropion HCl 150 mg BID@07,19 PO 12/03/24 07:00 12/03/24 06:10 150 MG Lisinopril 2.5 mg DAILY PO 12/03/24 10:00 12/03/24 10:00 2.5 MG Clopidogrel Bisulfate 75 mg DAILY PO 12/03/24 10:00 12/03/24 10:00 75 MG Furosemide 40 mg DAILY PO 12/04/24 10:00 Examination General Appearance: Alert, Oriented X3, Cooperative, No acute distress HEENT: Atraumatic, PERRLA, EOMI, Mucous membrane moist/pink Respiratory: Clear to auscultation, Normal air movement Cardiovascular: Regular rate, Normal S1, Normal S2, No murmurs, but chest wall tenderness Abdominal: Normal bowel sounds, Soft, No tenderness, No hepatospenomegaly, No masses Extremities: Grade 2 pedal edema but no tenderness, cyanosis Skin: No rashes, No breakdown, No significant lesion Neuro: Normal gait, Normal speech, no sensory motor deficits Psych/Mental Status: Mental status NL, Mood NL Nurse was there as a yard pilot during the examination laboratory and microbiology Laboratory Tests 12/03/24 05:17 Test 12/03/24 05:17 Range/Units Serum Glucose 93 74-106 mg/dL Labs and/or images reviewed: Labs reviewed by me, Image(s) reviewed by me Problem List/Assessment/Plan Problem List/Assessment/Plan # Chest pain, noncardiac # Ruled out ACS - troponins were negative - EKG shows normal sinus rhythm with no significant ST or T-wave changes - Echocardiogram, Ejection Fraction is 55-60%. - Clopidogrel - Morphine p.r.n. # ? Costochondritis/ musculoskeletal chest pain - baclofen - pain management as needed # RONAL likely VMN on CKD - monitor lab for now - Avoide nephrotoxic agents # GERD - Protonix # reactive leukocytosis - monitor lab for now #Depression without signs of suicide or homicidal ideation - Continue home meds # ? hyperparathyroidism likely from CKD # hypercalcemia likely due to above asymptomatic - monitor lab for now - outpatient follow up # ? LOUIS -outpatient follow up with the sleep studies # morbid obesity with a BMI 54.1 -nutritional consult Protonix Lovenox Cardiac diet Goals of care discussed with the patient for more than 27 minutes: Full code status Case discussed with Dr. Chand, patient and nurse Plan discussed with: Patient My Orders My Orders Orders - LIONEL ESCUDERO Procedure Category Date Status Time Electrocardigram EKG 12/03/24 Logged 10:27 Furosemide Tablet PHA 12/04/24 In Process (Lasix Tablet) 10:00 Transfer Orders XFER 12/03/24 Transmitted 14:10 LIONEL ESCUDERO RESIDENT Dec 03, 2024 14:16
--- NOTE | 2024-12-03 14:39 | ECG ---
[facility] Test Date: 2024-12-03 Test Time: 12:37:54 Pat Name: ELVIN ABEL Department: Room: 024[facility] Gender: F Record Changer: PATRICIA BESS RN : 1980 Requested By: LIONEL ESCUDERO Order Number: [id number] Reading MD: Travis Kaufman Measurements Intervals [place] Rate: 58 P: 61 DE: 205 QRS: 18 QRSD: 92 T: 18 QT: 448 QTc: 441 Interpretive Statements Sinus rhythm Borderline prolonged DE interval Partial missing lead(s): V4 Electronically Signed On 12-03-2024 19:07:00 PDT by Travis Kaufman Please click the below link to view image of tracing.
--- NOTE | 2024-12-03 14:40 | ECG ---
[facility] Test Date: 2024-12-03 Test Time: 04:27:44 Pat Name: ELVIN ABEL Department: Room: [address] [place] [address] Gender: F Sql Ssis Developer: jamilah : 1980 Requested By: JOSE REZA Order Number: [id number] Reading MD: Travis Kaufman Measurements Intervals [place] Rate: 66 P: 51 NM: 209 QRS: 21 QRSD: 104 T: 22 QT: 434 QTc: 455 Interpretive Statements Sinus rhythm Borderline prolonged NM interval Low voltage, precordial leads Electronically Signed On 12-03-2024 19:06:14 PDT by Travis Kaufman Please click the below link to view image of tracing.
[2024-12-03 16:17] LABS: Urine Bacteria FEW /hpf (None Seen); Urine Blood Negative /uL (Negative); Urine Clarity Clear (Clear); Urine Color Colorless (Yellow); Urine Protein, UAD Negative (Negative); Urine Specific Gravity 1.003 (1.001-1.035); Urine Squamous Epithelial Cell FEW /hpf (<5); Urine Urobilinogen Normal (Negative); Urine WBC < 1 /HPF (0-5)
[2024-12-03 16:46] LABS: Amphetamine Screen, Urine Neg (NEGATIVE); Barbiturate Scree,Urine Neg (NEGATIVE); Benzodiazephine Screen, Urine Neg (NEGATIVE); Cannabinoid Screen, Urine Neg (NEGATIVE); Cocaine Screen, Urine Neg (NEGATIVE); Opiate Scree,Urine Neg (NEGATIVE); Phencyclidine Screen, Urine Neg (NEGATIVE)
[2024-12-04 01:00] VITALS: BP 114/71; PULSE 74; RESP 18; TEMP 98.3; O2SAT 93
[2024-12-04 05:00] VITALS: BP 112/67; PULSE 67; RESP 18; TEMP 98.2; O2SAT 94
[2024-12-04 06:01] LABS: Basophils # (auto) 0.1 10 ^3/uL (0-0.2); Basophils % (auto) 0.4 % (0.0-2.0); Eosinophils # (auto) 0.2 10 ^3/uL (0-0.8); Eosinophils % (auto) 1.3 % (0.0-7.0); Hematocrit 41.7 % (36.0-46.0); Hemoglobin 13.9 g/dL (12.2-16.2); Lymphocytes # (auto) 2.3 10 ^3/uL (0.4-5.4); Lymphocytes % (auto) 18.9 % (10.0-50.0); Mean Corpuscular Hemoglobin 28.8 pg (28.0-32.0); Mean Corpuscular Hgb Conc. 33.4 g/dL (32.0-36.0); Mean Corpuscular Volume 86.2 fL (80.0-100.0); Monocytes # (auto) 1.2 10 ^3/uL (0-1.3); Monocytes % (auto) 9.7 % (0.0-12.0); Neutrophils # (auto) 8.4 10 ^3/uL (1.6-8.6); Neutrophils % (auto) 69.7 % (37.0-80.0); Nucleated Red Blood Cells % 0.1 %; Platelet Count (auto) 300 10^3/uL (140-450); Red Blood Cells 4.84 10^6/uL (4.0-5.20); Red Cell Distribution Width 14.6 % (11.8-14.3); White Blood Cell 12.1 10^3/uL (4.4-10.8)
[2024-12-04 06:17] LABS: Chloride 105 mmol/L (98-107); Potassium 3.8 mmol/L (3.5-5.1); Sodium 140 mmol/L (136-145)
[2024-12-04 06:18] LABS: Anion Gap 7 (5-15); Carbon Dioxide 28 mmol/L (20-31)
[2024-12-04 06:23] LABS: BUN/Creatinine Ratio 6.7 (10.0-20.0); Blood Urea Nitrogen 11 mg/dL (9-23); Glucose 87 mg/dL (74-106)
[2024-12-04 06:31] LABS: Calcium 11.8 mg/dL (8.7-10.4)
[2024-12-04 08:30] VITALS: BP 113/71; PULSE 63; RESP 14; TEMP 97.8; O2SAT 91
[2024-12-04] MEDS: FUROSEMIDE 20 MG TAB PO SCH (09:10)
[2024-12-04] MEDS: BACLOFEN 10 MG TAB PO ONE (09:54)
[2024-12-04] MEDS ORDERED: CYCL-837 PO ×2 (09:57→09:58)
[2024-12-04 10:16] VITALS: BP 126/78; TEMP 36.6
--- NOTE | 2024-12-04 11:13 | DVHDSRES ---
Discharge Summary Date of Admission Resident Creating Document: LIONEL ESCUDERO RESIDENT Dec 02, 2024 at 22:44 Date of Discharge: Dec 04, 2024 Admitting Diagnosis Chest pain Labs/Diagnostic Data: Laboratory Results Test 12/04/24 05:23 12/03/24 15:45 12/03/24 10:50 12/03/24 05:17 White Blood Count 12.1 10^3/uL (4.4-10.8) Red Blood Count 4.84 10^6/uL (4.0-5.20) Hemoglobin 13.9 g/dL (12.2-16.2) Hematocrit 41.7 % (36.0-46.0) Mean Corpuscular Volume 86.2 fL (80.0-100.0) Mean Corpuscular Hemoglobin 28.8 pg (28.0-32.0) Mean Corpuscular Hemoglobin Concent 33.4 g/dL (32.0-36.0) Red Cell Distribution Width 14.6 % (11.8-14.3) Platelet Count 300 10^3/uL (140-450) Mean Platelet Volume 7.1 fL (6.9-10.8) Neutrophils (%) (Auto) 69.7 % (37.0-80.0) Lymphocytes (%) (Auto) 18.9 % (10.0-50.0) Monocytes (%) (Auto) 9.7 % (0.0-12.0) Eosinophils (%) (Auto) 1.3 % (0.0-7.0) Basophils (%) (Auto) 0.4 % (0.0-2.0) Neutrophils # (Auto) 8.4 10 ^3/uL (1.6-8.6) Lymphocytes # (Auto) 2.3 10 ^3/uL (0.4-5.4) Monocytes # (Auto) 1.2 10 ^3/uL (0-1.3) Eosinophils # (Auto) 0.2 10 ^3/uL (0-0.8) Basophils # (Auto) 0.1 10 ^3/uL (0-0.2) Nucleated Red Blood Cells 0.1 % Sodium Level 140 mmol/L (136-145) Potassium Level 3.8 mmol/L (3.5-5.1) Chloride Level 105 mmol/L (98-107) Carbon Dioxide Level 28 mmol/L (20-31) Anion Gap 7 (5-15) Blood Urea Nitrogen 11 mg/dL (9-23) Creatinine 1.63 mg/dL (0.550-1.02) Glomerular Filtration Rate Calc 40 mL/min (>90) BUN/Creatinine Ratio 6.7 (10.0-20.0) Serum Glucose 87 mg/dL (74-106) Calcium Level 11.8 mg/dL (8.7-10.4) Urine Color Colorless (Yellow) Urine Clarity Clear (Clear) Urine pH 6.0 (5.0-9.0) Urine Specific [place] 1.003 (1.001-1.035) Urine Protein Negative (Negative) Urine Ketones Negative (Negative) Urine Blood Negative /uL (Negative) Urine Nitrite Negative (Negative) Urine Bilirubin Negative (Negative) Urine Urobilinogen Normal mg/dL (Negative) Urine Leukocyte Esterase Negative /uL (Negative) Urine RBC None seen /hpf (0 - 4) Urine Microscopic WBC < 1 /HPF (0-5) Urine Squamous Epithelial Cells Few /hpf (<5) Urine Bacteria Few /hpf (None Seen) Urine Glucose Normal mg/dL (Normal) Urine Opiates Screen Neg (NEGATIVE) Urine Fentanyl Screen Neg (NEGATIVE) Urine Barbiturates Screen Neg (NEGATIVE) Urine Phencyclidine Screen Neg (NEGATIVE) Urine Amphetamines Screen Neg (NEGATIVE) Urine Benzodiazepines Screen Neg (NEGATIVE) Urine Cocaine Screen Neg (NEGATIVE) Urine Cannabinoids Screen Neg (NEGATIVE) Troponin I High Sensitivity < 3 ng/L (</=34) Total Bilirubin 0.3 mg/dL (0.2-1.0) Aspartate Amino Transferase (AST) 9 U/L (13-40) Alanine Aminotransferase (ALT) 13 U/L (7-40) Alkaline Phosphatase 105 U/L (46-116) B-Type Natriuretic Peptide 12.53 pg/mL (0-100) Total Protein 7.0 g/dL (5.7-8.2) Albumin 4.2 g/dL (3.2-4.8) Test 12/02/24 20:40 D-Dimer, Quantitative 0.49 mg/L FEU (0.0-0.49) Hemoglobin A1c 5.3 % A1C (<5.7) Phosphorus Level 2.1 mg/dL (2.4-5.1) Magnesium Level 2.1 mg/dL (1.6-2.6) Direct Bilirubin < 0.1 mg/dL (<0.3) Triglycerides Level 229 mg/dL (< 150) Cholesterol Level 121 mg/dL (< 200) LDL Cholesterol 64 mg/dL (< 100) HDL Cholesterol 34 mg/dL (40-59) Vitamin B12 Level 315 pg/mL (211-911) Vitamin D 25-Hydroxy 39.8 ng/mL (30.0-100) Thyroid Stimulating Hormone (TSH) 2.29 uIU/mL (0.55-4.78) Parathyroid Hormone (Intact) 195.5 pg/mL (18.4-80.1) Other Laboratory Tests 12/04/24 05:23 Brief Hx & Hospital Course: ELVIN ABEL is a 44 year old female with past medical history of hypertension, depression, GERD, CKD, and asthma came to the hospital due to chest pain for 1 day. Yesterday while doing household work patient started having localized substernal chest pain, burning in nature, 7/10, increased with taking deep breaths. The pain did not resolve by taking nitroglycerin. Also reports shortness of breath. He denies fever, nausea, vomiting, or any recent bowel and bladder habit changes. Patient required hospital admission for further evaluation and management of chest pain.EKG showed normal sinus rhythm but no ST changes and troponins were not elevated. Echocardiogram showed ejection fraction 55-60%. Patient was on chest pain protocol. Patient was diagnosed with musculoskeletal chest pain possible costochondritis, given baclofen for the pain. Due to RONAL patient was continuously monitor labs and avoid nephrotoxic agents. Due to heartburn patient was on Protonix. patient was diagnosed with hyperparathyroidism with a, advised to follow up with outpatient PCP and Nephrology. Due to possibility of LOUIS the patient was advised to follow up with the sleep study. Patient was counseled regarding healthy lifestyle modifications including diet and exercise due to morbid obesity. Patient condition was improved, hemodynamically stable and in condition discharged home with the cyclobenzaprine tablets along with home meds. General Appearance: Alert, Oriented X3, Cooperative, No acute distress HEENT: Atraumatic, PERRLA, EOMI, Mucous membrane moist/pink Respiratory: Clear to auscultation, Normal air movement Cardiovascular: Regular rate, Normal S1, Normal S2, No murmurs, but chest wall tenderness Abdominal: Normal bowel sounds, Soft, No tenderness, No hepatospenomegaly, No masses Extremities: Grade 2 pedal edema but no tenderness, cyanosis Skin: No rashes, No breakdown, No significant lesion Neuro: Normal gait, Normal speech, no sensory motor deficits Psych/Mental Status: Mental status NL, Mood NL Nurse was there as a application support intern during the examination Condition at Discharge: Stable Final Diagnosis/Problems List # Chest pain, noncardiac # Ruled out ACS # ? Costochondritis/ musculoskeletal chest pain # RONAL likely VMN on CKD # GERD # reactive leukocytosis # Depression without signs of suicide or homicidal ideation # ? primary vs secondary hyperparathyroidism likely from CKD # hypercalcemia likely due to above asymptomatic # ? LOUIS # morbid obesity with a BMI 54.1 Discharge Disposition: Home Discharge Instruct/Medications Diet: Cardiac 2g Na,low cholest, Renal Activity: No Restrictions, As Tolerated Follow Up/Referral: PCP nad Nephro for ckd and hyperparathyroid workup Medications: Cyclobenzaprine 10 mg Resume home meds Discharge Statement: "Patient was advised to return to the ER or call 911 if any headaches, dizziness, shortness of breath, chest pain, abdominal pain, bleeding, fevers, or worsening of medical condition. Patient was counseled about treatment plan, medications, possible side effects, patientverbalized understanding. All questions were answered to the best of my ability. This discharge took greater then 30 minutes in planning, reviewing documentation, counseling the patient, and discussing with other team members." ASSESSMENT ASSESSMENT Assessment Non cardiac chest pain Costochondritis LIONEL ESCUDERO RESIDENT Dec 04, 2024 11:13
[2024-12-04 12:30] VITALS: BP 115/80; PULSE 69; RESP 16; TEMP 97.3; O2SAT 94
[2024-12-04] MEDS ORDERED: BACLOFEN 10 MG TAB PO PRN (17:45)
== END 2024-12-04 12:50 | disposition home or self-care (01) | DRG 205 ==
LOC: EDBD 20:20 → ER 20:20 → OVERFLOW 22:44 → TELE-EAST 23:11 → EAST 12-03 14:50
PROVIDERS: ADMIT Student in an Organized Health Care Education/Training Program; ATTEND Emergency Medicine
DX: M94.0 Chondrocostal junction syndrome [Tietze] (principal); N17.0 Acute kidney failure with tubular necrosis; N39.0 Urinary tract infection, site not specified; Z68.43 Body mass index [BMI] 50.0-59.9, adult; N25.81 Secondary hyperparathyroidism of renal origin; N18.9 Chronic kidney disease, unspecified; D72.829 Elevated white blood cell count, unspecified; I51.3 Intracardiac thrombosis, not elsewhere classified; F32.A Depression, unspecified; K21.9 Gastro-esophageal reflux disease without esophagitis; I12.9 Hypertensive chronic kidney disease with stage 1 through stage 4 chronic kidney disease, or unspecified chronic kidney disease; J45.909 Unspecified asthma, uncomplicated; G47.33 Obstructive sleep apnea (adult) (pediatric); E83.52 Hypercalcemia; E66.01 Morbid (severe) obesity due to excess calories; Z88.6 Allergy status to analgesic agent; Z88.8 Allergy status to other drugs, medicaments and biological substances; Z79.899 Other long term (current) drug therapy; Z79.84 Long term (current) use of oral hypoglycemic drugs; Z79.1 Long term (current) use of non-steroidal anti-inflammatories (NSAID); Z87.11 Personal history of peptic ulcer disease; Z90.710 Acquired absence of both cervix and uterus; Z80.8 Family history of malignant neoplasm of other organs or systems
CPT/HCPCS: 36415; 71046; 80048; 80053; 80061; 80076; 80307; 81001; 82306; 82607; 83036; 83735; 83880; 83970; 84100; 84443; 84484; 85025; 85379; 87081; 93005; 93306; G0378; J2470

== ENCOUNTER 2025-09-14 16:39 | Inpatient (IN) | payer MEDICARE, MEDICAID ==
[~2025-09-14] VITALS: Ht 165.1 cm; Wt 144.7 kg
[~2025-09-14 16:39] MED LIST changes: -ACET-1882 PO; +ARIP5TAB22 PO; +BUSP10TA31 PO; +CETI-120 PO; -CETI-195 PO; +CYCL-837 PO; -DOCU-94 PO; -FAMO20TA10 PO; +FAMO40TA7 PO; +FURO20TA4 PO; +LISI-275 PO; +MUPI2OIN2 TOP; +NIFE1TAB30 PO; +PANT40T PO; +TERB250T92 PO; -TRAZ-228 PO; +TRAZ1TAB12 PO; -ZOFR4T PO
[2025-09-14] MEDS ORDERED: HYDROcodone-ACET 5/325MG TAB PO ONE (18:45)
[2025-09-14] MEDS ORDERED: DICYCLOMINE HCL 10 MG CAP PO ONE (18:45)
[2025-09-14] MEDS ORDERED: ONDANSETRON ODT 4 MG TAB PO ONE (18:45)
--- NOTE | 2025-09-14 18:54 | ED.PDOC ---
GI ASSESSMENT HPI Comments 44-year-old female who came to ER for abdominal pain. Patient recently diagnosed with gallstones, with a past few days she has been experiencing right upper quadrant abdominal pain radiating to the right side. Did have episodes of nausea and vomiting. Patient has self-medicated with Tylenol but offered no relief Chief Complaint: Abdominal Pain Time Seen by MD: 18:54 Primary Care Provider: RAI Reviewed Notes: Nurses Notes Allergies: Coded Allergies: Vancomycin (Unverified Allergy, Intermediate, Rash, pruritus, 04/06/24) Aspirin (Verified Allergy, Unknown, 06/11/24) Ibuprofen (Verified Allergy, Unknown, 06/11/24) Home Meds Active Scripts Cyclobenzaprine Hcl (Cyclobenzaprine Hcl) 5 Mg Tab, 5 MG PO QPM for 10 Days, #20 TAB Two tablets at night for 5 days and the remaining tablets as needed. Prov:LIONEL ESCUDERO RESIDENT 12/04/24 Pantoprazole Sodium Sesquihydr (Protonix) 40 Mg Tab, 40 MG PO DAILY, #30 TAB Prov:EDUAR ORELLANA MD 11/25/23 Reported Medications Mupirocin (Pseudomonas Fluores (Mupirocin) 2 % Oin, 1 APPLIC TOP 12/03/24 Cetirizine HCl (Cetirizine Hydrochloride) 10 Mg Tab, 1 TAB PO DAILY 12/03/24 Lisinopril (Lisinopril) 5 Mg Tab, 1 TAB PO DAILY 12/03/24 Famotidine (Famotidine) 40 Mg Tab, 1 TAB PO BID 12/03/24 Nifedipine (Nifedipine Er) 60 Mg Tab, 1 TAB PO DAILY 12/03/24 Aripiprazole (Aripiprazole) 5 Mg Tab, 1 TAB PO DAILY 12/03/24 Trazodone Hcl (Trazodone Hcl) 150 Mg Tab, 1 TAB PO 12/03/24 Buspirone HCl (Buspirone HCl) 10 Mg Tab, 1 TAB PO BID 12/03/24 Pantoprazole Sodium Sesquihydr (Pantoprazole Sodium) 40 Mg Tab, 1 TAB PO DAILY 12/03/24 Terbinafine Hcl (Terbinafine Hcl) 250 Mg Tab, 1 TAB PO DAILY 12/03/24 Furosemide (Furosemide) 20 Mg Tab, 1 TAB PO DAILY 12/03/24 Albuterol Sulfate (VENTOLIN MDI) 90 Mcg Ih, 2 PUFF IN Q4HPRN, INH 04/06/24 Lovastatin (Lovastatin) 20 Mg Tab, 20 MG PO HS, TAB 04/06/24 Lisinopril (Lisinopril) 2.5 Mg Tab, 5 MG PO DAILY, TAB 04/06/24 Furosemide (Furosemide) 20 Mg Tab, 20 MG PO DAILY, TAB 04/06/24 Fenofibrate (Fenofibrate) 54 Mg Tab, 54 MG PO DAILY, TAB 04/06/24 Buspirone Hcl (Buspirone Hcl) 5 Mg Tab, 10 MG PO BID, TAB 04/06/24 Bupropion Hcl (Bupropion Hcl Xl) 150 Mg Tab, 300 MG PO DAILY, TAB 04/06/24 Aripiprazole (Abilify) 2 Mg Tab, 5 MG PO DAILY, TAB 04/06/24 Information Source: Patient Mode of Arrival: Ambulatory Timing: Hours Past Medical History PAST MEDICAL HISTORY: Asthma, Gallstones, HTN, PUD, UTI'S Surgical History: Hysterectomy PRODUCT SUPPORT REPRESENTATIVE History: No Pertinent PRODUCT SUPPORT REPRESENTATIVE History Family History Family History: Family hx of heart chava Social History Smoker: Non-Smoker Alcohol: Denies ETOH Use Drugs: Denies Drug Use Lives In: Home Constitutional: denies: chills, diaphoresis, fatigue, fever, malaise, sweats, weakness, others EENTM: denies: blurred vision, double vision, ear bleeding, ear discharge, ear drainage, ear pain, ear ringing, eye pain, eye redness, hearing loss, mouth pain, mouth swelling, nasal discharge, nose bleeding, nose congestion, nose pain, photophobia, tearing, throat pain, throat swelling, voice changes, others Respiratory: denies: cough, hemoptysis, orthopnea, SOB at rest, shortness of breath, SOB with excertion, stridor, wheezing, others Cardiovascular: denies: chest pain, dizzy spells, diaphoresis, Dyspnea on exertion, edema, irregular heart beat, left arm pain, lightheadedness, palpitations, PND, syncope, others Gastrointestinal: reports: abdominal pain, nausea, vomiting; denies: abdomen d istended, blood streaked bowels, constipated, diarrhea, dysphagia, difficulty swallowing, hematemesis, melena, poor appetite, poor fluid intake, rectal bleeding, rectal pain, others Genitourinary: denies: abnormal vagina bleeding, burning, dyspareunia, dysuria, flank pain, frequency, hematuria, incontinence, pain, , vagina discharge, urgency, others Neurological: denies: dizziness, fainting, headache, left sided numbness, left sided weakness, numbness, paresthesia, pre-existing deficit, right sided numbness, right sided weakness, seizure, speech problems, tingling, tremors, weakness, others Musculoskeletal: denies: back pain, gout, joint pain, joint swelling, muscle pain, muscle stiffness, neck pain, others Integumetry: denies: bruises, change in color, change in hair/nails, dryness, laceration, lesions, lumps, rash, wounds, others Allergic/Immunocompromised: denies: Difficulty Healing, Frequent Infections, Hives, Itching, others Hematologic/Lymphatic: denies: anemia, blood clots, easy bleeding, easy bruising, swollen glands, others Endocrine: denies: excessive hunger, excessive sweating, excessive thirst, excessive urination, flushing, intolerance to cold, intolerance to heat, unexplained weight gain, unexplained weight loss, others Psychiatric: denies: anxiety, bipolar disorder, depression, hopeless, panic disorder, schizophrenia, sleepless, suicidal, others Physical Exam General Appearance: No Apparent Distress, Normal HEENT: Normal ENT Inspection, Pharynx Normal, TMs Normal Neck: Full Range of Motion, Non-Tender, Normal, Normal Inspection Respiratory: Chest Non-Tender, Lungs Clear, No Accessory Muscle Use, No Respiratory Distress, Normal Breath Sounds Cardiovascular: No Edema, No JVD, No Murmur, No Gallop, Normal Peripheral Pulses, Regular Rate/Rhythm Breast Exam: Deferred Gastrointestinal: No Organomegaly, Non Tender, No Pulsatile Mass, Normal Bowel Sounds, Soft Genitalia: Deferred Pelvic: Deferred Rectal: Deferred Extremities: No calf tenderness, Normal capillary refill, Normal inspection, Normal range of motion, Non-tender, No pedal edema Musculoskeletal : Apperance: Normal Neurologic: Alert, forestry fire aid II-XII nml as Tested, No Motor Deficits, Normal Affect, Normal Mood, No Sensory Deficits Cerebellar Function: Normal Reflexes: Normal Skin: Dry, Normal Color, Warm Lymphatic: No Adenopathy Was a procedure done? Was a procedure done?: No GI differential Dx Differential Diagnosis: Cholecystitis, Diverticular disease, Gastritis/PUD, Gastroenteritis, Hernia, Hepatitis, Pancreatitis, UTI X-Ray, Labs, Meds, VS Vital Signs Date Time Temp Pulse Resp B/P (MAP) Pulse Ox O2 Delivery O2 Flow Rate FiO2 09/14/25 19:37 95 18 95 Room Air 09/14/25 19:37 97.6 95 18 121/90 (100) 95 97.6 09/14/25 18:40 98.0 94 20 125/73 (90) 96 98.0 09/14/25 16:40 97.8 109 18 130/83 95 97.8 Lab Test 09/14/25 19:19 09/14/25 18:56 Range/Units Urine Color Light-yellow Yellow Urine Clarity Turbid H Clear Urine pH 5.5 5.0-9.0 Urine Specific [place] 1.010 1.001-1.035 Urine Protein Negative Negative Urine Ketones Negative Negative Urine Blood Negative Negative /uL Urine Nitrite Negative Negative Urine Bilirubin Negative Negative Urine Urobilinogen Normal Negative mg/dL Urine Leukocyte Esterase Negative Negative /uL Urine RBC 3 0 - 4 /hpf Urine Microscopic WBC 5 0-5 /HPF Urine Squamous Epithelial Cells Few <5 /hpf Urine Bacteria Mod H None Seen /hpf Urine Hyaline Casts Few 0 - 2 /lpf Urine Mucus Few None Seen Urine Glucose Normal Normal mg/dL White Blood Count 14.6 H 4.4-10.8 10^3/uL Red Blood Count 5.45 H 4.0-5.20 10^6/uL Hemoglobin 15.9 12.2-16.2 g/dL Hematocrit 47.9 H 36.0-46.0 % Mean Corpuscular Volume 88.0 80.0-100.0 fL Mean Corpuscular Hemoglobin 29.3 28.0-32.0 pg Mean Corpuscular Hemoglobin Concent 33.3 32.0-36.0 g/dL Red Cell Distribution Width 14.5 H 11.8-14.3 % Platelet Count 363 140-450 10^3/uL Mean Platelet Volume 7.4 6.9-10.8 fL Neutrophils (%) (Auto) 76.9 37.0-80.0 % Lymphocytes (%) (Auto) 14.0 10.0-50.0 % Monocytes (%) (Auto) 7.5 0.0-12.0 % Eosinophils (%) (Auto) 1.0 0.0-7.0 % Basophils (%) (Auto) 0.6 0.0-2.0 % Neutrophils # (Auto) 11.3 H 1.6-8.6 10 ^3/uL Lymphocytes # (Auto) 2.0 0.4-5.4 10 ^3/uL Monocytes # (Auto) 1.1 0-1.3 10 ^3/uL Eosinophils # (Auto) 0.1 0-0.8 10 ^3/uL Basophils # (Auto) 0.1 0-0.2 10 ^3/uL Nucleated Red Blood Cells 0.0 % Sodium Level 141 136-145 mmol/L Potassium Level 3.8 3.5-5.1 mmol/L Chloride Level 104 98-107 mmol/L Carbon Dioxide Level 28 20-31 mmol/L Anion Gap 9 5-15 Blood Urea Nitrogen 10 9-23 mg/dL Creatinine 1.52 H 0.550-1.02 mg/dL Glomerular Filtration Rate Calc 44 >90 mL/min BUN/Creatinine Ratio 6.6 L 10.0-20.0 Serum Glucose 81 74-106 mg/dL Calcium Level 12.1 H 8.7-10.4 mg/dL Total Bilirubin 0.2 0.2-1.0 mg/dL Aspartate Amino Transferase (AST) 14 13-40 U/L Alanine Aminotransferase (ALT) 11 7-40 U/L Alkaline Phosphatase 160 H 46-116 U/L Total Protein 8.6 H 5.7-8.2 g/dL Albumin 5.0 H 3.2-4.8 g/dL Lipase 37 12-53 U/L Time of 1ST Reevaluation: 18:52 Reevaluation 1ST: Unchanged Patient Education/Counseling: Diagnosis, Treatment Family Education/Counseling: No Family Present SEPSIS Sepsis Screen Date sepsis recognized/suspect: Sep 14, 2025 Time Sepsis recognized/suspect: 1843 Recent Procedure: No On Antibiotic Therapy: No Respiratory Rate >20: No Heart Rate >90: No Temp<36 C (96.8 F) or >38.3 C: No SBP <90 or MAP <65 mmHG: No New Acute Mental Status Change: No Is the patient on CPAP, BIPAP,: No Physician Orders Gallbladder (09/14/25 18:43) Ondansetron Po (Zofran Po) (09/14/25 20:00) Vital Signs Date Time Temp Pulse Resp B/P (MAP) Pulse Ox O2 Delivery O2 Flow Rate FiO2 09/14/25 19:37 95 18 95 Room Air 09/14/25 19:37 97.6 95 18 121/90 (100) 95 97.6 09/14/25 18:40 98.0 94 20 125/73 (90) 96 98.0 09/14/25 16:40 97.8 109 18 130/83 95 97.8 Laboratory Tests Test 09/14/25 18:56 White Blood Count 14.6 10^3/uL (4.4-10.8) H Departure 1 Departure Time of Disposition: 19:45 Impression: Primary Impression: Intractable abdominal pain Additional Impressions: Cholecystitis Acute renal injury Disposition: ADMITTED INPATIENT Admit to: Med Surg Condition: Guarded Discharged With: Self Comments 44-year-old female with history of gallstones now with severe right upper quadrant pain. Still having pain on re-evaluation. White count is elevated 14.6. Creatinine is elevated 1.52. Ultrasound shows gallstones. I ordered IV fluids and IV antibiotics. Patient will need to be admitted for supportive care and further workup. Critical Care Note Critical Care Time?: No Stability Stability form required: No Heart Score Heart Score: Heart Score Response (Comments) Value History N/A 0 EKG N/A 0 Age N/A 0 Risk Factors N/A 0 Troponin N/A 0 Total 0 I personally scribed for JAYDE GARCIA MD ([email or web address]) on 09/14/25 at 18:54. Electronically submitted by John Figueroa ([email or web address]). JAYDE GARCIA MD Sep 14, 2025 18:54
[2025-09-14 19:18] LABS: Hematocrit 47.9 % (36.0-46.0); Hemoglobin 15.9 g/dL (12.2-16.2); Mean Corpuscular Hemoglobin 29.3 pg (28.0-32.0); Mean Corpuscular Volume 88.0 fL (80.0-100.0); Nucleated Red Blood Cells % 0.0 %
[2025-09-14 19:35] LABS: Alanine Aminotransferase 11 U/L (7-40); Anion Gap 9 (5-15); BUN/Creatinine Ratio 6.6 (10.0-20.0); Blood Urea Nitrogen 10 mg/dL (9-23); Carbon Dioxide 28 mmol/L (20-31); Chloride 104 mmol/L (98-107); Glucose 81 mg/dL (74-106); Lipase 37 U/L (12-53); Potassium 3.8 mmol/L (3.5-5.1); Sodium 141 mmol/L (136-145)
[2025-09-14 19:36] LABS: Albumin 5.0 g/dL (3.2-4.8); Alkaline Phosphatase 160 U/L (46-116); Bilirubin, Total 0.2 mg/dL (0.2-1.0); Calcium 12.1 mg/dL (8.7-10.4); Total Protein 8.6 g/dL (5.7-8.2)
[2025-09-14 19:36] LABS: Urine Protein, UAD Negative (Negative)
--- NOTE | 2025-09-14 19:36 | DVH ---
PROCEDURE: US GALLBLADDER Study Date and Requested Time: 09/14/2025 06:57 PM History: RUQ pain COMPARISON: None TECHNIQUE: Multiple high resolution archuleta-scale images obtained of the right upper quadrant of the abdomen with color Doppler for evaluation of blood flow and vascularity as indicated. FINDINGS: Liver measures 20 cm in length, with increased echogenicity and normal contours. No evidence of focal hepatic lesions, intrahepatic or extrahepatic ductal dilatation. Common bile duct measures 0.5 cm in diameter. Gallstones within the gallbladder with no evidence of gallbladder wall thickening or pericholecystic free fluid. Negative sonographic andino's sign. Pancreatic head is unremarkable with the body and tail obscured by bowel gas. Right kidney measures 9.4 cm in length, with normal contours, echotexture, and cortical thickness. No evidence of hydronephrosis, calculi, cystic or solid renal lesions. Partially visualized inferior vena cava unremarkable. IMPRESSION: Hepatomegaly with hepatic steatosis. Cholelithiasis with no evidence of acute cholecystitis.
[2025-09-14] MEDS: HYDROcodone-ACET 5/325MG TAB PO ONE (19:57)
[2025-09-14] MEDS: DICYCLOMINE HCL 10 MG CAP PO ONE (19:57)
[2025-09-14] MEDS: ONDANSETRON ODT 4 MG TAB PO ONE (20:04)
[2025-09-14] MEDS: SODIUM CHLORIDE 0.9% 1,000 ML IV ONE ×2 (20:52→23:34)
[2025-09-14] MEDS ORDERED: ONDANSETRON HCL 4 MG/2 ML VIAL IV PRN (22:30)
--- NOTE | 2025-09-14 23:27 | DVH ---
EXAM: CT CT AB PEL WO CON-NO ORAL OR IV HISTORY: RUQ pain, R flank pain, h/o kidney stones COMPARISON STUDY: CT ABD/PEL on DOS: 02/11/24, CT CT AB PEL WO CON-NO ORAL OR IV on DOS: 11/25/23, CT ABD PELVIS WO CONTRAST on DOS: 08/10/19, CT ABD PELVIS WO CONTRAST on DOS: 07/12/19 TECHNIQUE: Multidetector CT of the abdomen and pelvis was performed from lung bases to pubic symphysis. Imaging was performed without IV contrast. Axial, coronal, and sagittal multiplanar reformats were obtained from the axial data set by the technologist. RADIATION DOSE: CTDI vol 26.8 mGy. DLP 1818.7 mGy.cm FINDINGS: Limited evaluation of the solid organs in the absence of IV contrast. Lungs: Minimal atelectasis/scarring. Liver: Unremarkable. Spleen: Unremarkable. Pancreas: Unremarkable. Gallbladder: Cholelithiasis. Adrenals: Unremarkable Kidneys: Bilateral nonobstructing renal calculi. No hydronephrosis. Pelvic Viscera: Prior hysterectomy. Vasculature: Unremarkable. Retroperitoneum: Unremarkable. Bowel: No bowel obstruction. The appendix is normal. Musculoskeletal: Lumbar spinal hardware is noted. Soft tissues: Tiny fat containing umbilical hernia. IMPRESSION: 1. No acute abdominopelvic abnormality. 2. Bilateral nonobstructing nephrolithiasis.
[2025-09-14] MEDS: PANTOPRAZOLE 40 MG/10 ML VIAL INJ IV ONE (23:34)
[2025-09-15] VITALS (9 sets, daily range): BP systolic 104–131; BP diastolic 66–89; PULSE 60–83; RESP 15–18; TEMP 97.5–98.6; O2SAT 92–100
[2025-09-15] MEDS ORDERED: SIME80CH49 PO (02:34)
[2025-09-15] MEDS ORDERED: [UNRECOGNIZED DRUG - CODE] PO (02:34)
[2025-09-15] MEDS ORDERED: KETO2CRE4 EX (02:34)
[2025-09-15] MEDS ORDERED: DOCU-265 PO (02:34)
[2025-09-15] MEDS ORDERED: ACET-1882 PO (02:34)
[2025-09-15] MEDS ORDERED: CLOB0.059 TOP (02:34)
[2025-09-15] MEDS: HYDROmorphone HCL 2 MG/ML VL/or syr ONE (03:59)
[2025-09-15] MEDS: HYDROmorphone HCL 2 MG/ML VL/or syr IV PRN ×2 (03:59→22:55)
--- NOTE | 2025-09-15 06:14 | DVHHPRES ---
History of Present Illness Resident Creating Document: CHAYITO LUAJOSE RESIDENT History of Present Illness Patient is a 44-year-old female presented to the hospital with a chief complaint of abdominal pain and nausea vomiting for the last 2 days. Patient reported right upper quadrant, right lumbar abdominal pain radiating to the right flank, constant with the episodes of sharp intermittent pain for the last 2 days and today she was having nausea and multiple episodes of vomiting and could not keep anything down, had chills but denied any fever, following which she came to the hospital for further evaluation. On arrival to the hospital patient was seen to be tachycardic, had elevated WBC count with left shift and gallbladder ultrasound showed cholelithiasis without evidence of cholecystitis, hepatomegaly with a hepatic stenosis. CT abdomen pelvis without contrast was done which showed cholelithiasis, bilateral nonobstructing nephrolithiasis. Past medical history: Major depressive disorder, hypertension, asthma, GERD, CKD Surgical history: Denies any abdominal or other surgeries Social history: Patient denies smoking, alcohol, drug use Home medications: Aripiprazole 5 mg daily, bupropion 300 mg daily, buspirone 10 mg b.i.d., nifedipine 60 mg daily, Protonix, trazodone Review of Systems Review of Systems Patient reported nausea and vomiting have improved Continues to have low-grade alcohol withdrawal pain into fever, chills shortness of breath, chest pain Patient also reports of dysuria Allergies: Coded Allergies: Vancomycin (Unverified Allergy, Intermediate, Rash, pruritus, 04/06/24) Aspirin (Verified Allergy, Unknown, 06/11/24) Ibuprofen (Verified Allergy, Unknown, 06/11/24) Medications Current Medications Medications Dose Ordered Sig/Vargas Route Start Time Stop Time Status Last Admin Dose Admin Ceftriaxone Sodium 50 ml @ 100 mls/hr DAILY@09 IV 09/15/25 09:00 Metronidazole 100 ml @ 100 mls/hr Q8HR IV 09/15/25 06:00 Bupropion HCl 150 mg BID@ PO 09/15/25 07:00 Buspirone HCl 10 mg Q12HR PO 09/15/25 10:00 Ondansetron HCl 4 mg Q6HPRN PRN IV 09/14/25 22:30 Pantoprazole Sodium 40 mg DAILY IV 09/15/25 10:00 Acetaminophen/ Hydrocodone Bitart 1 tab Q6HPRN PRN PO 09/15/25 03:30 Hydromorphone HCl 0.25 mg Q6HPRN PRN IV 09/15/25 03:30 09/15/25 03:59 0.25 MG Exam Vital Signs Vital Signs Date Time Temp Pulse Resp B/P (MAP) Pulse Ox O2 Delivery O2 Flow Rate FiO2 09/15/25 04:47 98.6 61 15 104/66 (79) 92 98.6 09/15/25 02:35 Room Air* 0 21 Exam Skin - Patients skin is warm and dry. HEENT - normocephalic, atraumatic, dry mucous membranes, no scleral icterus, no conjunctival pallor. Neck - full ROM, no LAD, no JVD Pulmonary - B/L clear breath sounds without any wheezing, rales or stridor cardiovascular - regular S1,S2 heard, no added sounds or murmurs appreciable. peripheral pulses normal radial 2+, pedal 2+. GI - soft abdomen with tenderness to palpation in the right upper quadrant of the right lumbar quadrant, positive Mean's sign. no hepatospleenomegaly. Bowel sounds normoactive Neurological - Patient is A/O X 4 . Bilateral upper extremity strength 5/5, bilateral lower extremity strength 5/5, no facial droop, normal speech, no tremor, no sensory deficiets. Labs/Xrays Labs Test 09/14/25 19:19 09/14/25 18:56 Range/Units Urine Color Light-yellow Yellow Urine Clarity Turbid H Clear Urine pH 5.5 5.0-9.0 Urine Specific [place] 1.010 1.001-1.035 Urine Protein Negative Negative Urine Ketones Negative Negative Urine Blood Negative Negative /uL Urine Nitrite Negative Negative Urine Bilirubin Negative Negative Urine Urobilinogen Normal Negative mg/dL Urine Leukocyte Esterase Negative Negative /uL Urine RBC 3 0 - 4 /hpf Urine Microscopic WBC 5 0-5 /HPF Urine Squamous Epithelial Cells Few <5 /hpf Urine Bacteria Mod H None Seen /hpf Urine Hyaline Casts Few 0 - 2 /lpf Urine Mucus Few None Seen Urine Glucose Normal Normal mg/dL White Blood Count 14.6 H 4.4-10.8 10^3/uL Red Blood Count 5.45 H 4.0-5.20 10^6/uL Hemoglobin 15.9 12.2-16.2 g/dL Hematocrit 47.9 H 36.0-46.0 % Mean Corpuscular Volume 88.0 80.0-100.0 fL Mean Corpuscular Hemoglobin 29.3 28.0-32.0 pg Mean Corpuscular Hemoglobin Concent 33.3 32.0-36.0 g/dL Red Cell Distribution Width 14.5 H 11.8-14.3 % Platelet Count 363 140-450 10^3/uL Mean Platelet Volume 7.4 6.9-10.8 fL Neutrophils (%) (Auto) 76.9 37.0-80.0 % Lymphocytes (%) (Auto) 14.0 10.0-50.0 % Monocytes (%) (Auto) 7.5 0.0-12.0 % Eosinophils (%) (Auto) 1.0 0.0-7.0 % Basophils (%) (Auto) 0.6 0.0-2.0 % Neutrophils # (Auto) 11.3 H 1.6-8.6 10 ^3/uL Lymphocytes # (Auto) 2.0 0.4-5.4 10 ^3/uL Monocytes # (Auto) 1.1 0-1.3 10 ^3/uL Eosinophils # (Auto) 0.1 0-0.8 10 ^3/uL Basophils # (Auto) 0.1 0-0.2 10 ^3/uL Nucleated Red Blood Cells 0.0 % Sodium Level 141 136-145 mmol/L Potassium Level 3.8 3.5-5.1 mmol/L Chloride Level 104 98-107 mmol/L Carbon Dioxide Level 28 20-31 mmol/L Anion Gap 9 5-15 Blood Urea Nitrogen 10 9-23 mg/dL Creatinine 1.52 H 0.550-1.02 mg/dL Glomerular Filtration Rate Calc 44 >90 mL/min BUN/Creatinine Ratio 6.6 L 10.0-20.0 Serum Glucose 81 74-106 mg/dL Calcium Level 12.1 H 8.7-10.4 mg/dL Total Bilirubin 0.2 0.2-1.0 mg/dL Aspartate Amino Transferase (AST) 14 13-40 U/L Alanine Aminotransferase (ALT) 11 7-40 U/L Alkaline Phosphatase 160 H 46-116 U/L Total Protein 8.6 H 5.7-8.2 g/dL Albumin 5.0 H 3.2-4.8 g/dL Lipase 37 12-53 U/L Beta HCG, Quantitative 0.0 L 1.5-4.2 mIU/mL SEPSIS Sepsis Screen Date sepsis recognized/suspect: Sep 14, 2025 Time Sepsis recognized/suspect: 1843 Recent Procedure: No On Antibiotic Therapy: No Respiratory Rate >20: No Heart Rate >90: No Temp<36 C (96.8 F) or >38.3 C: No SBP <90 or MAP <65 mmHG: No New Acute Mental Status Change: No Is the patient on CPAP, BIPAP,: No Physician Orders Admit (09/14/25 22:) Oxygen By Nasal Cannula (09/14/25:) Stat Ekg For Chest Pain (09/14/25:) Notify Of Changes From Base (09/14/25:) Ceftriaxone 1gm/50ml (Rocephin) (09/15/25 09:00) Metronidazole 500mg/100ml (Flagyl 500mg/ (09/15/25 06:00) Ct Ab Pel Wo Con-No Oral Or Iv (09/14/25 22:29) Clear Liq Diet (09/15/25 Breakfast) Bupropion Tablet (Wellbutrin Tablet) (09/15/25 07:00) Buspirone Hcl Tablet (Buspar Tablet) (09/15/25 10:00) Ondansetron Hcl (Zofran) (09/14/25 22:30) Pantoprazole (Protonix) (09/15/25 10:00) Nm Hida Scan (09/14/25 22:29) Basic Metabolic Panel (09/15/25 04:00) Complete Blood Count (09/15/25 04:00) Sodium Chloride 0.9% (09/14/25 22:30) Mrsa Screen (09/15/25 03:04) Urine Bacterial Culture (09/15/25 03:22) Hydrocodone-Acet 5/325mg Tab ([place] 5/32 (09/15/25 03:30) Hydromorphone Injection (Dilaudid Inject (09/15/25 03:30) Vital Signs Date Time Temp Pulse Resp B/P (MAP) Pulse Ox O2 Delivery O2 Flow Rate FiO2 09/15/25 04:47 98.6 61 15 104/66 (79) 92 98.6 09/15/25 03:59 67 16 120/74 09/15/25 02:35 Room Air* 0 21 09/15/25 02:35 97.6 69 17 128/89 (102) 95 97.6 Laboratory Tests Test 09/14/25 18:56 White Blood Count 14.6 10^3/uL (4.4-10.8) H Medications Medications Dose Ordered Sig/Vargas Route Start Time Stop Time Status Last Admin Dose Admin Acetaminophen/ Hydrocodone Bitart 1 tab ONCE ONCE PO 09/14/25 20:00 09/14/25 20:01 DC 09/14/25 19:57 1 TAB Ceftriaxone Sodium 50 ml @ 100 mls/hr ONCE ONCE IV 09/14/25 20:00 09/14/25 20:29 DC 09/14/25 20:00 100 MLS/HR Dicyclomine HCl 20 mg ONCE ONCE PO 09/14/25 20:00 09/14/25 20:01 DC 09/14/25 19:57 20 MG Hydromorphone HCl 0.25 mg Q6HPRN PRN IV 09/15/25 03:30 09/15/25 03:59 0.25 MG Metronidazole 100 ml @ 100 mls/hr ONCE ONCE IV 09/14/25 20:00 09/14/25 20:59 DC 09/14/25 20:52 100 MLS/HR Ondansetron HCl 8 mg ONCE ONCE PO 09/14/25 20:00 09/14/25 20:01 DC 09/14/25 20:04 8 MG Pantoprazole Sodium 40 mg ONCE ONCE IV 09/14/25 22:30 09/14/25 22:45 DC 09/14/25 23:34 40 MG Sodium Chloride 1,000 ml @ 1,000 mls/hr Q1H ONCE IV 09/14/25 20:00 09/14/25 20:59 DC 09/14/25 20:52 1,000 MLS/HR Assessment/Plan Assessment/Plan Cholelithiasis with biliary colic probable acute cholecystitis Sepsis likely due to above RONAL on CKD likely prerenal due to VMN Probable UTI Hepatic steatosis Constipation h/o major depression disorder Morbid obesity GERD Plan - NM HIDA scan pending - IV antibiotics ceftriaxone and metronidazole, IV fluids - since patient complaint of dysuria, urine bacteria culture pending - continued on home medications of buspirone and bupropion - Protonix for GERD - MiraLax for constipation as needed - clear liquid diet Goals of care discussed with the patient. Full code Time spent: 34 minutes Plan discussed with Dr. Swan Plan discussed with: Patient, Other (RN) My Orders Orders - BHAVNA LUA RESIDENT Procedure Category Date Status Time Admit ADMIT 09/14/25 Transmitted 22:29 Oxygen By Nasal RT 09/14/25 Transmitted Cannula 22:29 Stat Ekg For Chest JOCELYNE 09/14/25 In Process Pain 22:29 Notify Md Of Changes JOCEYLNE 09/14/25 In Process From Base 22:29 Ceftriaxone 1gm/50ml PHA 09/15/25 In Process (Rocephin) 09:00 Metronidazole PHA 09/15/25 In Process 500mg/100ml (Flagyl 06:00 Ct Ab Pel Wo Con-No CT 09/14/25 Resulted Oral Or Iv 22: Clear Liq Diet DIET 09/15/25 Transmitted Breakfast Bupropion Tablet PHA 09/15/25 In Process (Wellbutrin Tablet) 07:00 Buspirone Hcl Tablet PHA 09/15/25 In Process (Buspar Tablet) 10:00 Ondansetron Hcl PHA 09/14/25 In Process (Zofran) 22:30 Pantoprazole PHA 09/15/25 In Process (Protonix) 10:00 Nm Hida Scan NM 09/14/25 Logged 22:29 Basic Metabolic Panel LAB 09/15/25 Logged 04:00 Complete Blood Count LAB 09/15/25 Logged 04:00 Sodium Chloride 0.9% PHA 09/14/25 In Process 22:30 Mrsa Screen RENETTA 09/15/25 In Process 03:04 Urine Bacterial RENETTA 09/15/25 Uncollected Culture 03:22 Hydrocodone-Acet PHA 09/15/25 In Process 5/325mg Tab ([place] 03:30 Hydromorphone PHA 09/15/25 In Process Injection (Dilaudid 03:30 Visit Coding STANDARD RES Billing Provider: REID SWAN MD Date of Service if different f: Sep 14, 2025 Common Visit Codes: [id number] INP/OBS CARE (HIGH) Secondary Visit Codes: [id number] CARE PLAN 30 MINUTES BHAVNA LUA RESIDENT Sep 15, 2025 06:14
[2025-09-15] MEDS ORDERED: ACETAMINOPHEN 325 MG TAB PO PRN ×2 (06:15→21:15)
[2025-09-15] MEDS ORDERED: POLYETHYLENE GLYCOL 17 GM PWDR PO PRN (06:15)
[2025-09-15 08:48] LABS: Hematocrit 46.4 % (36.0-46.0); Hemoglobin 15.3 g/dL (12.2-16.2); Mean Corpuscular Hemoglobin 29.1 pg (28.0-32.0); Mean Corpuscular Volume 88.3 fL (80.0-100.0); Nucleated Red Blood Cells % 0.3 %
[2025-09-15 09:10] LABS: Potassium 4.9 mmol/L (3.5-5.1); Sodium 140 mmol/L (136-145)
[2025-09-15 09:11] LABS: Anion Gap 9 (5-15); Carbon Dioxide 24 mmol/L (20-31); Chloride 107 mmol/L (98-107)
[2025-09-15 09:12] LABS: Calcium 11.5 mg/dL (8.7-10.4)
[2025-09-15 09:16] LABS: BUN/Creatinine Ratio 4.1 (10.0-20.0); Glucose 86 mg/dL (74-106)
[2025-09-15 09:18] LABS: Blood Urea Nitrogen 6 mg/dL (9-23)
[2025-09-15] MEDS: HYDROcodone-ACET 5/325MG TAB PO PRN ×2 (10:59→21:28)
[2025-09-15] MEDS: PANTOPRAZOLE 40 MG/10 ML VIAL INJ IV SCH (11:00)
[2025-09-15] MEDS ORDERED: FURO40TA4 PO (16:54)
--- NOTE | 2025-09-15 18:28 | DVHPN2 ---
Subjective Patient is clinically stable. Complains of right upper quadrant discomfort postprandial and at times at rest. Changes from previous H/P or p: No Changes Objective Vitals Vital Signs Date Time Temp Pulse Resp B/P (MAP) Pulse Ox O2 Delivery O2 Flow Rate FiO2 09/15/25 15:24 60 16 106/80 09/15/25 04:47 98.6 92 98.6 09/15/25 02:35 Room Air* 0 21 Intake/Output Intake and Output 09/15/25 07:00 Intake Total 0 ml Output Total 0 ml Balance 0 ml Intake Oral 0 ml Output Urine Total 0 ml Exam Obese female comfortable in recliner without acute distress. HEENT neck supple no JVD. Heart regular rate and rhythm. Lungs fair air movement without wheezing. Abdomen obese soft nontender positive bowel sounds. Extremities no edema. Medications Current Medications Medications Dose Ordered Sig/Vargas Route Start Time Stop Time Status Last Admin Dose Admin Ceftriaxone Sodium 50 ml @ 100 mls/hr DAILY@09 IV 09/15/25 09:00 09/15/25 11:00 100 MLS/HR Metronidazole 100 ml @ 100 mls/hr Q8HR IV 09/15/25 06:00 09/15/25 15:22 100 MLS/HR Bupropion HCl 150 mg BID@07,19 PO 09/15/25 07:00 09/15/25 06:09 150 MG Buspirone HCl 10 mg Q12HR PO 09/15/25 10:00 09/15/25 10:59 10 MG Ondansetron HCl 4 mg Q6HPRN PRN IV 09/14/25 22:30 Pantoprazole Sodium 40 mg DAILY IV 09/15/25 10:00 09/15/25 11:00 40 MG Acetaminophen/ Hydrocodone Bitart 1 tab Q6HPRN PRN PO 09/15/25 03:30 09/15/25 10:59 1 TAB Hydromorphone HCl 0.25 mg Q6HPRN PRN IV 09/15/25 03:30 09/15/25 15:24 0.25 MG Acetaminophen 650 mg Q6HP PRN PO 09/15/25 06:15 Polyethylene Glycol 17 gm DAILYPRN PRN PO 09/15/25 06:15 Albuterol 90 mcg Q4HPRN IN 09/16/25 02:00 UNV Furosemide 40 mg DAILY PO 09/16/25 10:00 UNV Patient Own Medication 1 tab DAILY PO 09/16/25 10:00 UNV Patient Own Medication 1 applic QPM TOP 09/16/25 18:00 UNV Patient Own Medication 20 mg HS PO 09/15/25 22:00 UNV Patient Own Medication 1 tab DAILY PO 09/16/25 10:00 UNV Laboratory Results Laboratory Tests 09/15/25 08:27 Chemistry Test 09/14/25 18:56 09/15/25 08:27 Albumin 5.0 g/dL (3.2-4.8) H Calcium Level 12.1 mg/dL (8.7-10.4) H 11.5 mg/dL (8.7-10.4) H Total Protein 8.6 g/dL (5.7-8.2) H Lipid panel Test 09/14/25 18:56 Lipase 37 U/L (12-53) LFT Test 09/14/25 18:56 Alanine Aminotransferase (ALT) 11 U/L (7-40) Alkaline Phosphatase 160 U/L (46-116) H Aspartate Amino Transferase (AST) 14 U/L (13-40) Total Bilirubin 0.2 mg/dL (0.2-1.0) Urinalysis Test 09/14/25 19:19 Urine Color Light-yellow (Yellow) Urine Clarity Turbid (Clear) H Urine pH 5.5 (5.0-9.0) Urine Specific [place] 1.010 (1.001-1.035) Urine Protein Negative (Negative) Urine Ketones Negative (Negative) Urine Blood Negative /uL (Negative) Urine Nitrite Negative (Negative) Urine Bilirubin Negative (Negative) Urine Urobilinogen Normal mg/dL (Negative) Urine Leukocyte Esterase Negative /uL (Negative) Urine RBC 3 /hpf (0 - 4) Urine Microscopic WBC 5 /HPF (0-5) Urine Squamous Epithelial Cells Few /hpf (<5) Urine Bacteria Mod /hpf (None Seen) H Urine Hyaline Casts Few /lpf (0 - 2) Urine Mucus Few (None Seen) Urine Glucose Normal mg/dL (Normal) Microbiology Microbiology Date/Time Source Procedure Growth Status 09/15/25 02:55 Nose MRSA Screen - Final Complete Labs and/or images reviewed: Labs reviewed by me Assessment/Plan Assessment/Plan HIDA scan is ordered. I will get a surgical consultation. Continue clear liquid diet. Resume her home medications including Lasix which she is requesting. Follow the labs. Continue current pain medications and antiemetics. DVT prophylaxis with the Lovenox. Otherwise further clinical management per clinical course and pending evaluations and studies. Discussed with the patient along with the nurse at bedside regarding care plan. Plan discussed with: Patient, Other My Orders Orders - CHAZ ALARCON MD Procedure Category Date Status Time * Surgical Consult CONS 09/15/25 Transmitted Complete Blood Count LAB 09/16/25 Verified 04:00 Comprehensive LAB 09/16/25 Verified Metabolic Panel 04:00 Albuterol Inhaler PHA 09/16/25 Logged (Ventolin Hfa) 02:00 Furosemide Tablet PHA 09/16/25 Logged (Lasix Tablet) 10:00 (Nf) Aripiprazole PHA 09/16/25 Logged 10:00 (Nf) Clobetasol PHA 09/16/25 Logged Propionate 18:00 (Nf) Lovastatin PHA 09/15/25 Logged 22:00 (Nf) Nifedipine PHA 09/16/25 Logged (Nifedipine Er) 10:00 Enoxaparin Sodium PHA 09/16/25 Verified (Lovenox) 10:00 Problem List: (1) Morbid obesity with BMI of 50.0-59.9, adult (2) Acute gastritis (3) Cholecystitis (4) Intractable abdominal pain Date of Service: Sep 15, 2025 Billing Provider: CHAZ ALARCON MD Common Visit Codes: [id number] INP/OBS CARE(HIGH) CHAZ ALARCON MD Sep 15, 2025 18:28
[2025-09-15] MEDS ORDERED: ALBUTEROL SULF 2.5 MG/0.5ML(0.5%) NEB SOLN NEB PRN (22:00)
[2025-09-16] VITALS (12 sets, daily range): BP systolic 108–128; BP diastolic 71–83; PULSE 60–88; RESP 14–20; TEMP 97.8–98.6; O2SAT 91–99
[2025-09-16] MEDS ORDERED: ALBUTEROL SULF HFA 90MCG INH 200DOSE IN PRN (02:00)
[2025-09-16] MEDS: ONDANSETRON HCL 4 MG/2 ML VIAL IV PRN (05:08)
[2025-09-16 05:58] LABS: Hematocrit 41.6 % (36.0-46.0); Hemoglobin 13.6 g/dL (12.2-16.2); Mean Corpuscular Hemoglobin 29.0 pg (28.0-32.0); Mean Corpuscular Volume 88.8 fL (80.0-100.0); Nucleated Red Blood Cells % 0.0 %
[2025-09-16 06:18] LABS: Alanine Aminotransferase 12 U/L (7-40); Albumin 4.0 g/dL (3.2-4.8); Alkaline Phosphatase 127 U/L (46-116); Anion Gap 7 (5-15); BUN/Creatinine Ratio 5.7 (10.0-20.0); Bilirubin, Total 0.4 mg/dL (0.2-1.0); Blood Urea Nitrogen 8 mg/dL (9-23); Calcium 11.3 mg/dL (8.7-10.4); Carbon Dioxide 28 mmol/L (20-31); Chloride 106 mmol/L (98-107); Glucose 80 mg/dL (74-106); Potassium 4.1 mmol/L (3.5-5.1); Sodium 141 mmol/L (136-145); Total Protein 6.9 g/dL (5.7-8.2)
[2025-09-16] MEDS ORDERED: FUROSEMIDE 40 MG TAB PO SCH (10:00)
[2025-09-16] MEDS ORDERED: ENOXAPARIN SOD 40 MG/0.4 ML SYRINGE SC SCH (10:00)
[2025-09-16] MEDS ORDERED: PATIENTS OWN MEDICATION (Nifedipine (Nifedipine Er) 1 TAB) PO SCH (10:00)
[2025-09-16] MEDS: ENOXAPARIN SOD 40 MG/0.4 ML SYRINGE SC SCH (10:00)
[2025-09-16] MEDS: PANTOPRAZOLE 40 MG/10 ML VIAL INJ IV SCH (12:21)
[2025-09-16] MEDS: FUROSEMIDE 40 MG TAB PO SCH (12:22)
--- NOTE | 2025-09-16 14:05 | DVH ---
PROCEDURE: NM NM HIDA SCAN Exam Date: 09/16/2025 10:57 AM CLINICAL HISTORY: r/o cholecystitis Comparison Study: US GALLBLADDER on DOS: 09/14/25 Nuclear Medicine Hepatobiliary Scan. TECHNIQUE: Following the intravenous administration of 4.6 mCi of technetium 99m labeled Choletec multiple planar abdominal planar images were obtained in anterior projection in 5 minute intervals for50 minutes . Right lateral images were obtained at 50 minutes after injection. FINDINGS: The liver appears grossly normal in size. There is no abnormal persistence of the cardiac or blood pool activity. There is prompt visualization of the gallbladder and excretion of activity into the small bowel. IMPRESSION: Unremarkable hepatobiliary study without evidence of acute cholecystitis.
--- NOTE | 2025-09-16 16:28 | DVHPN2 ---
Subjective Patient is complaining of abdominal pain tolerating liquid diet. HIDA scan was done. Changes from previous H/P or p: No Changes Objective Vitals Vital Signs Date Time Temp Pulse Resp B/P (MAP) Pulse Ox O2 Delivery O2 Flow Rate FiO2 09/16/25 14:18 76 16 122/79 09/16/25 13:00 98.1 92 98.1 09/16/25 09:52 Room Air* 0 21 Intake/Output Intake and Output 09/16/25 07:00 Intake Total 1100 ml Balance 1100 ml Intake Oral 900 ml IV Total 200 ml # Voids 2 Exam HEENT pupils are reactive Neck is supple CV is S1-S2 regular rate and rhythm Respiratory diminished breath sounds bases GI positive bowel sound Extremity no edema [employer] no motor deficit Medications Current Medications Medications Dose Ordered Sig/Vargas Route Start Time Stop Time Status Last Admin Dose Admin Polyethylene Glycol 17 gm DAILYPRN PRN PO 09/15/25 06:15 Patient Own Medication 1 tab DAILY PO 09/16/25 10:00 Patient Own Medication 1 applic QPM TOP 09/16/25 18:00 Atorvastatin Calcium 10 mg HS PO 09/16/25 22:00 Ceftriaxone Sodium 50 ml @ 100 mls/hr DAILY@09 IV 09/16/25 09:00 09/16/25 08:23 100 MLS/HR Metronidazole 100 ml @ 100 mls/hr Q8HR IV 09/15/25 22:00 09/16/25 13:22 100 MLS/HR Bupropion HCl 150 mg BID@07,19 PO 09/16/25 07:00 09/16/25 05:59 150 MG Buspirone HCl 10 mg Q12HR PO 09/15/25 22:00 09/16/25 12:21 10 MG Ondansetron HCl 4 mg Q6HPRN PRN IV 09/15/25 21:15 09/16/25 05:08 4 MG Pantoprazole Sodium 40 mg DAILY IV 09/16/25 10:00 09/16/25 12:21 40 MG Acetaminophen/ Hydrocodone Bitart 1 tab Q6HPRN PRN PO 09/15/25 21:15 09/16/25 12:22 1 TAB Hydromorphone HCl 0.25 mg Q6HPRN PRN IV 09/15/25 21:15 09/16/25 14:18 0.25 MG Acetaminophen 650 mg Q6HP PRN PO 09/15/25 21:15 Furosemide 40 mg DAILY PO 09/16/25 10:00 09/16/25 12:22 40 MG Enoxaparin Sodium 40 mg DAILY SC 09/16/25 10:00 Albuterol 1.25 mg Q4HPRN PRN NEB 09/15/25 21:15 Laboratory Results Laboratory Tests 09/16/25 05:25 Chemistry Test 09/16/25 05:25 Albumin 4.0 g/dL (3.2-4.8) Calcium Level 11.3 mg/dL (8.7-10.4) H Total Protein 6.9 g/dL (5.7-8.2) LFT Test 09/16/25 05:25 Alanine Aminotransferase (ALT) 12 U/L (7-40) Alkaline Phosphatase 127 U/L (46-116) H Aspartate Amino Transferase (AST) 13 U/L (13-40) Total Bilirubin 0.4 mg/dL (0.2-1.0) Urinalysis Test 09/14/25 19:19 Urine Color Light-yellow (Yellow) Urine Clarity Turbid (Clear) H Urine pH 5.5 (5.0-9.0) Urine Specific [place] 1.010 (1.001-1.035) Urine Protein Negative (Negative) Urine Ketones Negative (Negative) Urine Blood Negative /uL (Negative) Urine Nitrite Negative (Negative) Urine Bilirubin Negative (Negative) Urine Urobilinogen Normal mg/dL (Negative) Urine Leukocyte Esterase Negative /uL (Negative) Urine RBC 3 /hpf (0 - 4) Urine Microscopic WBC 5 /HPF (0-5) Urine Squamous Epithelial Cells Few /hpf (<5) Urine Bacteria Mod /hpf (None Seen) H Urine Hyaline Casts Few /lpf (0 - 2) Urine Mucus Few (None Seen) Urine Glucose Normal mg/dL (Normal) Microbiology Microbiology Date/Time Source Procedure Growth Status 09/15/25 02:55 Nose MRSA Screen - Final Complete 09/14/25 19:19 Voided Urine Urine Culture - Preliminary No growth Resulted Assessment/Plan Assessment/Plan 44-year-old female with a known history of GERD, chronic kidney disease, hypertension, chronic asthma, major depression disorder currently not in decompensation , morbid obesity classIII initially presented to the hospital with the abdominal pain found to have 1. Cholelithiasis ruled out acute cholecystitis, follow up on HIDA scan 2. GERD 3. Hypertension 4. Chronic asthma 5. Major depression disorder currently not in decompensation 6. Morbid obesity classII -continue pain meds as needed, diet as tolerated, follow up General surgery and HIDA scan. Plan discussed with: Patient Problem List: (1) Intractable abdominal pain (2) Morbid obesity with BMI of 50.0-59.9, adult Date of Service: Sep 16, 2025 Billing Provider: SHAGUFTA NELSON MD Common Visit Codes: [id number] INP/OBS CARE(HIGH) SHAGUFTA NELSON MD Sep 16, 2025 16:28
[2025-09-16] MEDS: ALBUTEROL SULF 2.5 MG/0.5ML(0.5%) NEB SOLN NEB PRN (19:09)
[2025-09-16] MEDS: ATORVASTATIN 20 MG TAB PO SCH (21:32)
[2025-09-17] VITALS (10 sets, daily range): BP systolic 113–143; BP diastolic 73–90; PULSE 60–80; RESP 14–18; TEMP 36.7; O2SAT 91–96
[2025-09-17] MEDS ORDERED: CEFD300C2 PO (17:14)
--- NOTE | 2025-09-17 17:18 | DVHDS2 ---
Discharge Summary Date of Admission Sep 14, 2025 at 22:29 Date of Discharge: Sep 17, 2025 Labs/Diagnostic Data: Laboratory Results Test 09/16/25 05:25 09/14/25 19:19 09/14/25 18:56 White Blood Count 11.5 10^3/uL (4.4-10.8) Red Blood Count 4.68 10^6/uL (4.0-5.20) Hemoglobin 13.6 g/dL (12.2-16.2) Hematocrit 41.6 % (36.0-46.0) Mean Corpuscular Volume 88.8 fL (80.0-100.0) Mean Corpuscular Hemoglobin 29.0 pg (28.0-32.0) Mean Corpuscular Hemoglobin Concent 32.7 g/dL (32.0-36.0) Red Cell Distribution Width 13.9 % (11.8-14.3) Platelet Count 315 10^3/uL (140-450) Mean Platelet Volume 7.2 fL (6.9-10.8) Neutrophils (%) (Auto) 70.7 % (37.0-80.0) Lymphocytes (%) (Auto) 17.8 % (10.0-50.0) Monocytes (%) (Auto) 9.3 % (0.0-12.0) Eosinophils (%) (Auto) 1.8 % (0.0-7.0) Basophils (%) (Auto) 0.4 % (0.0-2.0) Neutrophils # (Auto) 8.2 10 ^3/uL (1.6-8.6) Lymphocytes # (Auto) 2.1 10 ^3/uL (0.4-5.4) Monocytes # (Auto) 1.1 10 ^3/uL (0-1.3) Eosinophils # (Auto) 0.2 10 ^3/uL (0-0.8) Basophils # (Auto) 0 10 ^3/uL (0-0.2) Nucleated Red Blood Cells 0.0 % Sodium Level 141 mmol/L (136-145) Potassium Level 4.1 mmol/L (3.5-5.1) Chloride Level 106 mmol/L (98-107) Carbon Dioxide Level 28 mmol/L (20-31) Anion Gap 7 (5-15) Blood Urea Nitrogen 8 mg/dL (9-23) Creatinine 1.40 mg/dL (0.550-1.02) Glomerular Filtration Rate Calc 48 mL/min (>90) BUN/Creatinine Ratio 5.7 (10.0-20.0) Serum Glucose 80 mg/dL (74-106) Calcium Level 11.3 mg/dL (8.7-10.4) Total Bilirubin 0.4 mg/dL (0.2-1.0) Aspartate Amino Transferase (AST) 13 U/L (13-40) Alanine Aminotransferase (ALT) 12 U/L (7-40) Alkaline Phosphatase 127 U/L (46-116) Total Protein 6.9 g/dL (5.7-8.2) Albumin 4.0 g/dL (3.2-4.8) Urine Color Light-yellow (Yellow) Urine Clarity Turbid (Clear) Urine pH 5.5 (5.0-9.0) Urine Specific May 1.010 (1.001-1.035) Urine Protein Negative (Negative) Urine Ketones Negative (Negative) Urine Blood Negative /uL (Negative) Urine Nitrite Negative (Negative) Urine Bilirubin Negative (Negative) Urine Urobilinogen Normal mg/dL (Negative) Urine Leukocyte Esterase Negative /uL (Negative) Urine RBC 3 /hpf (0 - 4) Urine Microscopic WBC 5 /HPF (0-5) Urine Squamous Epithelial Cells Few /hpf (<5) Urine Bacteria Mod /hpf (None Seen) Urine Hyaline Casts Few /lpf (0 - 2) Urine Mucus Few (None Seen) Urine Glucose Normal mg/dL (Normal) Lipase 37 U/L (12-53) Beta HCG, Quantitative 0.0 mIU/mL (1.5-4.2) Other Laboratory Tests 09/16/25 05:25 Brief Hx & Hospital Course: 44-year-old female with a known history of GERD, chronic kidney disease, hypertension, chronic asthma, major depression disorder currently not in decompensation , morbid obesity classIII initially presented to the hospital with the abdominal pain found to have cholelithiasis. Patient was ruled out for acute cholecystitis by negative HIDA scan. Patient did have some mild UTI treated with the IV antibiotics which will be switched to p.o. antibiotics. Patient is being discharged under stable condition once tolerates dinner tonight. Diet weight reduction and exercise counseling. Condition at Discharge: Stable Final Diagnosis/Problems List 44-year-old female with a known history of GERD, chronic kidney disease, hypertension, chronic asthma, major depression disorder currently not in decompensation , morbid obesity classIII initially presented to the hospital with the abdominal pain found to have 1. Cholelithiasis ruled out acute cholecystitis, HIDA scan is normal. 2. GERD 3. Hypertension 4. Chronic asthma 5. Major depression disorder currently not in decompensation 6. Morbid obesity classII Discharge Disposition: Home SNF Discharge Will this Physician continue t: No Discharge Instruct/Medications Diet: Cardiac 2g Na,low cholest Activity: No Restrictions, As Tolerated Follow Up/Referral: Please follow up with the PCP in 1-2 weeks Medications: Resume home medication, new prescription as prescribed. New Medications: Cefdinir (Cefdinir) 300 Mg Cap 1 CAP PO BID, #6 CAP Continued Medications: Acetaminophen (Acetaminophen) 325 Mg Tab PO Albuterol Sulfate (Ventolin Mdi) 90 Mcg Ih 2 PUFF IN Q4HPRN, INH Aripiprazole (Aripiprazole) 5 Mg Tab 1 TAB PO DAILY Bupropion Hcl (Bupropion Hcl Xl) 150 Mg Tab 300 MG PO DAILY, TAB Buspirone HCl (Buspirone HCl) 10 Mg Tab 1 TAB PO BID Calcium Carbonate (Antacid) (Calcium Antacid Extra Str) 750 Mg Chw PO Clobetasol Propionate (Clobetasol Propionate) 0.05 % Chelsie 1 APPLIC TOP QPM, #59 ML 1 Refill Cyclobenzaprine Hcl (Cyclobenzaprine Hcl) 5 Mg Tab 5 MG PO QPM for 10 Days, #20 TAB Two tablets at night for 5 days and the remaining tablets as needed. Docusate Sodium (Docusate Sodium) 100 Mg Cap 1 CAP PO BID Furosemide (Furosemide) 40 Mg Tab 40 MG PO DAILY for 30 Days Ketoconazole (Ketoconazole) 2 % Cre 2 % EX, CRE Lovastatin (Lovastatin) 20 Mg Tab 20 MG PO HS, TAB Mupirocin (Pseudomonas Fluores (Mupirocin) 2 % Oin 1 APPLIC TOP Nifedipine (Nifedipine Er) 60 Mg Tab 1 TAB PO DAILY Pantoprazole Sodium Sesquihydr (Protonix) 40 Mg Tab 40 MG PO DAILY, #30 TAB Simethicone (Simethicone) 80 Mg Chw 1 TAB PO Q4HP, #20 TAB Terbinafine Hcl (Terbinafine Hcl) 250 Mg Tab 1 TAB PO DAILY Trazodone Hcl (Trazodone Hcl) 150 Mg Tab 1 TAB PO Scheduled Albuterol Sulfate (Ventolin Mdi), 2 PUFF IN Q4HPRN, (Reported) Aripiprazole (Aripiprazole), 1 TAB PO DAILY, (Reported) Bupropion Hcl (Bupropion Hcl Xl), 300 MG PO DAILY, (Reported) Buspirone HCl (Buspirone HCl), 1 TAB PO BID, (Reported) Cefdinir (Cefdinir), 1 CAP PO BID Clobetasol Propionate (Clobetasol Propionate), 1 APPLIC TOP QPM, (Reported) Cyclobenzaprine Hcl (Cyclobenzaprine Hcl), 5 MG PO QPM Docusate Sodium (Docusate Sodium), 1 CAP PO BID, (Reported) Furosemide (Furosemide), 40 MG PO DAILY, (Reported) Lovastatin (Lovastatin), 20 MG PO HS, (Reported) Nifedipine (Nifedipine Er), 1 TAB PO DAILY, (Reported) Pantoprazole Sodium Sesquihydr (Protonix), 40 MG PO DAILY Simethicone (Simethicone), 1 TAB PO Q4HP, (Reported) Terbinafine Hcl (Terbinafine Hcl), 1 TAB PO DAILY, (Reported) Miscellaneous Medications Acetaminophen (Acetaminophen), PO, (Reported) Calcium Carbonate (Antacid) (Calcium Antacid Extra Str), PO, (Reported) Ketoconazole (Ketoconazole), 2 % EX, (Reported) Mupirocin (Pseudomonas Fluores (Mupirocin), 1 APPLIC TOP, (Reported) Trazodone Hcl (Trazodone Hcl), 1 TAB PO, (Reported) Discontinued Medications Aripiprazole (Abilify), 5 MG PO DAILY, (Reported) Buspirone Hcl (Buspirone Hcl), 10 MG PO BID, (Reported) Cetirizine HCl (Cetirizine Hydrochloride), 1 TAB PO DAILY, (Reported) Famotidine (Famotidine), 1 TAB PO BID, (Reported) Fenofibrate (Fenofibrate), 54 MG PO DAILY, (Reported) Furosemide (Furosemide), 20 MG PO DAILY, (Reported) Furosemide (Furosemide), 1 TAB PO DAILY, (Reported) Lisinopril (Lisinopril), 5 MG PO DAILY, (Reported) Lisinopril (Lisinopril), 1 TAB PO DAILY, (Reported) Pantoprazole Sodium Sesquihydr (Pantoprazole Sodium), 1 TAB PO DAILY, (Reported) Discharge Statement: "Patient was advised to return to the ER or call 911 if any headaches, dizziness, shortness of breath, chest pain, abdominal pain, bleeding, fevers, or worsening of medical condition. Patient was counseled about treatment plan, medications, possible side effects, patientverbalized understanding. All questions were answered to the best of my ability. This discharge took greater then 30 minutes in planning, reviewing documentation, counseling the patient, and discussing with other team members." ASSESSMENT ASSESSMENT Assessment 44-year-old female with a known history of GERD, chronic kidney disease, hypertension, chronic asthma, major depression disorder currently not in decompensation , morbid obesity classIII initially presented to the hospital with the abdominal pain found to have 1. Cholelithiasis ruled out acute cholecystitis, HIDA scan is normal. 2. GERD 3. Hypertension 4. Chronic asthma 5. Major depression disorder currently not in decompensation 6. Morbid obesity classII Date of Service: Sep 17, 2025 Billing Provider: SHAGUFTA NELSON MD Common Visit Codes: 54901-MSN/OBS DISCH DAY >30min SHAGUFTA NELSON MD Sep 17, 2025 17:18
--- NOTE | 2025-09-18 07:31 | ECG ---
[facility] Test Date: 2025-09-16 Test Time: 08:50:37 Pat Name: ELVIN ABEL Department: Respiratoy Room: [address] [place] [address] Gender: F Scrap Burner: YESENIA : 1980 Requested By: SHAGUFTA NELSON Order Number: [id number] Reading MD: Travis Kaufman Measurements Intervals [place] Rate: 75 P: 53 OK: 193 QRS: 20 QRSD: 92 T: 20 QT: 402 QTc: 449 Interpretive Statements Sinus rhythm Low voltage, precordial leads Electronically Signed On 09-19-2025 15:17:26 PST by Travis Kaufman Please click the below link to view image of tracing.
== END 2025-09-17 19:40 | disposition home or self-care (01) | DRG 445 ==
LOC: ER 16:39 → OVERFLOW 22:29 → EAST 09-15 20:34
PROVIDERS: ADMIT Internal Medicine; ATTEND Internal Medicine
DX: K80.20 Calculus of gallbladder without cholecystitis without obstruction (principal); N39.0 Urinary tract infection, site not specified; Z68.43 Body mass index [BMI] 50.0-59.9, adult; K76.0 Fatty (change of) liver, not elsewhere classified; J45.909 Unspecified asthma, uncomplicated; I12.9 Hypertensive chronic kidney disease with stage 1 through stage 4 chronic kidney disease, or unspecified chronic kidney disease; N18.9 Chronic kidney disease, unspecified; F32.9 Major depressive disorder, single episode, unspecified; E66.813 Obesity, class 3; K21.9 Gastro-esophageal reflux disease without esophagitis; K59.00 Constipation, unspecified; Z88.1 Allergy status to other antibiotic agents; Z88.6 Allergy status to analgesic agent; Z90.710 Acquired absence of both cervix and uterus; Z87.11 Personal history of peptic ulcer disease
CPT/HCPCS: 36415; 74176; 76705; 78226; 80048; 80053; 81001; 83690; 84702; 85025; 87081; 87086; 93005; 94640; 96365; 96367; G0378; J2405; J2470; J3490; Q0162